=== PATIENT | female | born 1930 | race Asian ===

== ENCOUNTER 2017-09-07 12:49 | Inpatient (IN) | payer MEDICARE, OTHER ==
[2017-09-07 14:17] LABS: Hematocrit 34.3 % (36.0-47.0); Mean Platelet Volume 6.1 fL (7.4-10.4); Red Blood Cell (RBC) Count 4.67 mill/uL (4.20-5.40); White Blood Cell (WBC) Count 19.8 thou/uL (4.8-10.8)
[2017-09-07 14:21] LABS: Lactic Acid - Sepsis 2.6 mmol/L (0.5-2.2)
[2017-09-07 14:31] LABS: ALT (SGPT) 51 U/L (8-55); AST (SGOT) 109 U/L (5-34); Alkaline Phosphatase 80 U/L (40-150); Anion Gap 20 mmol/L (10-20); BUN (Urea Nitrogen) 36 mg/dL (9.8-20.1); Bilirubin, Total 0.8 mg/dL (0.2-1.2); Calc. Creatinine Clearance 0 mL/min (70-130); Calcium 8.9 mg/dL (7.8-10.44); Carbon Dioxide 22 mmol/L (23-31); Chloride 99 mmol/L (98-107); Estimated GFR-MDRD 22; Globulin 2.7 g/dL (2.4-3.5); Protein, Total 6.5 g/dL (6.0-8.3)
[2017-09-07 14:34] LABS: Band 23 % (5-11); Hypochromia SLIGHT = 6-15 cells (100X) (0-5/hpf); Metamyelocyte 3 % (0-0); Microcytosis SLIGHT = 6-15 cells (100X) (0-5/hpf); Neutrophil 65 % (42-75); Ovalocytes SLIGHT = 2-5 cells (100X) (0-1/hpf); Polychromasia SLIGHT = 2-3 cells (100X) (0-2/hpf); Schistocytes SLIGHT = 2-5 cells (100X) (0-1/hpf); Target Cells SLIGHT = 2-5 cells (100X) (0-1/hpf)
[2017-09-07] MEDS ORDERED: Piperacillin/Tazobactam 4.5 GM in Sodium Chloride 0.9% 100 ML IVPB SCH (14:45)
[2017-09-07 14:46] LABS: Bilirubin Negative (Negative); Blood, Urine Large (Negative); Glucose, Urine (Dipstick) Negative (Negative); Ketone, Urine Negative (Negative); Nitrite Negative (Negative); Protein, Urine (Dipstick) 300 mg/dL (Neg-Trace)
[2017-09-07 14:48] LABS: Bacteria/HPF 4+ HPF (None Seen); Squamous Epithelial 21-50 HPF (0-3)
[2017-09-07 14:58] LABS: Hyaline Casts/LPF NONE SEEN LPF (0-3 Hyaline); Yeast-All Forms None Seen HPF (None Seen)
[2017-09-07] MEDS ORDERED: Vancomycin HCl 750 MG in Sodium Chloride 0.9% 250 ML 250 ML IVPB SCH (15:00)
--- NOTE | 2017-09-07 15:43 | RAD ---
RADIOGRAPH CHEST 1 VIEW: Date: 09/07/17 Time: 1:24 p.m. HISTORY: 87-year-old female with fever and anorexia. COMPARISON: None. FINDINGS: There is dense opacification of right lower lung zone, with a sharp, horizontally oriented upper line ar border. The right inferior hilum appears enlarged and is contiguous with this opacification. The r ight lung apex is clear. The left upper and mid lung zones are clear. Mild streaky densities at the r etrocardiac portion of left lower lobe. Left lateral costophrenic angle is not significantly effaced. No pneumothorax. No pulmonary edema. Mild cardiomegaly without pulmonary vascular engorgement. IMPRESSION: 1. Opacification of lower one third of the right lung, probably by a moderate to large right ple ural effusion with underlying severe atelectasis, or pneumonia, of right lower lobe and right middle lobe. 2. Cardiomegaly without congestive heart failure. [place] [] POS: [facility]
[2017-09-07] MEDS ORDERED: Dextrose 5% in Water 1,000 ML IV PRN (15:49)
[2017-09-07] MEDS ORDERED: Dextrose 50% Abboject 50 ML SYRINGE SLOW IVP PRN (15:49)
[2017-09-07] MEDS ORDERED: Mag-Al 1200 mg/1200 mg/30 ML UDCUP PO PRN (15:49)
[2017-09-07] MEDS ORDERED: Ondansetron ODT 4 MG TAB PO PRN (15:49)
[2017-09-07] MEDS ORDERED: Loperamide HCl 2 MG CAP PO PRN (15:49)
[2017-09-07] MEDS ORDERED: Ondansetron HCl/PF 4 MG/2 ML Vial IVP PRN (15:49)
[2017-09-07] MEDS ORDERED: Diabetic Tussin 200 MG/10 ML UDCUP PO PRN (15:49)
[2017-09-07] MEDS ORDERED: Chloraseptic Spray 180 ml Bottle PO PRN (15:49)
[2017-09-07] MEDS ORDERED: Acetaminophen 325 MG TAB PO PRN (15:49)
[2017-09-07] MEDS ORDERED: Artificial Tears 18 DROP/0.9 ML EA EYE PRN (15:49)
[2017-09-07] MEDS ORDERED: HYDROcodone/Acetaminophen 5/325 mg Tablet PO PRN (15:49)
[2017-09-07] MEDS ORDERED: hydrALAZINE 20 MG/ML VIAL SLOW IVP PRN (15:49)
[2017-09-07] MEDS ORDERED: Senokot 8.6 MG TAB PO PRN (15:49)
[2017-09-07] MEDS ORDERED: Eucerin (Mineral Oil/Petrolatum,White) 30 gm Jar TOP PRN (15:49)
[2017-09-07] MEDS ORDERED: Milk Of Magnesia 30 ML UDCUP PO PRN (15:49)
[2017-09-07] MEDS ORDERED: Loratadine 10 MG TAB PO PRN (15:49)
[2017-09-07] MEDS ORDERED: Sodium Chloride 0.65% Nasal 44 ML BOT EA NARE PRN (15:49)
--- NOTE | 2017-09-07 16:38 | HP ---
PRIMARY CARE PHYSICIAN: Ariel Vasques M.D. REASON FOR ADMISSION: Sepsis, acute kidney failure, urinary tract infection, pleural effusion/pneumonia. HISTORY OF PRESENT ILLNESS: An 87-year-old female who has history of hypertension, diabetes type 2, and dyslipidemia, who was brought to the emergency room for evaluation of fever and generalized weakness. The patient is a very poor historian. The patient's daughter reported to the ER physician that she is having fever since night. Her T maximum was 102. The patient's daughter just left and I was not able to reach her and that is why history is limited at this point. The patient has cough, increasing urinary frequency, dysuria, and diarrhea as well as generalized weakness. This is going on since . She denies any headache or body ache. She had a flu shot on last Saturday. Today in the emergency room, patient had routine blood tests and found with urinary tract infection and acute kidney failure, lactic acidosis and she also had leukocytosis with bandemia. Her chest x-ray showed opacification of lower one-third of the right lung and a moderate to large right pleural effusion versus atelectasis of right lower lobe and right middle lobe. REVIEW OF SYSTEMS: The following complete review of systems was negative, unless otherwise mentioned in the HPI or below: Constitutional: Weight loss or gain, ability to conduct usual activities. Skin: Rash, itching. Eyes: Double vision, pain. ENT/Mouth: Nose bleeding, neck stiffness, pain, tenderness. Cardiovascular: Palpitations, dyspnea on exertion, orthopnea. Respiratory: Shortness of breath, wheezing, cough, hemoptysis, fever or night sweats. Gastrointestinal: Poor appetite, abdominal pain, heartburn, nausea, vomiting, constipation, or diarrhea. Genitourinary: Urgency, frequency, dysuria, nocturia. Musculoskeletal: Pain, swelling. Neurologic/Psychiatric: Anxiety, depression. Allergy/Immunologic: Skin rash, bleeding tendency. Review of systems above-mentioned is limited because of level of alertness. ALLERGIES: No known drug allergies. CURRENT HOME MEDICATIONS: Metformin 500 mg p.o. b.i.d., metoprolol 50 mg p.o. daily, Zocor 40 mg p.o. at bedtime. PAST MEDICAL HISTORY: Diabetes type 2, hypertension, dyslipidemia, history of hemorrhagic CVA. PAST SURGICAL HISTORY: Right ear drum surgery, ectopic surgery. Dr. Rome did vein procedure on both legs. PAST PSYCHIATRIC HISTORY: Reviewed and negative. SOCIAL HISTORY: Patient drinks alcohol socially about 1-2 vodka sometimes. The patient denies any smoking. She denies any other illicit drug abuse. She lives at home with her daughter. FAMILY HISTORY: No strong family history of premature coronary artery disease, stroke or cancer. EMERGENCY ROOM COURSE: Patient has received vancomycin, Zosyn, and IV fluid. PHYSICAL EXAMINATION: VITAL SIGNS: On arrival, blood pressure 117/68, pulse 114, respiratory rate 22 , temperature 98.1, saturation 97% on room air, weight 45.3 kilograms. GENERAL: Patient appears chronically ill, tachycardic. No obvious acute distress. HEENT: Head: Normocephalic, atraumatic. Eyes: Pupils round, reactive to light. Extraocular muscles intact. ENT: Dry mucous membranes, otherwise unremarkable. No pharyngeal erythema, no exudate. NECK: Supple, no JVD, no meningeal signs of irritation. LUNGS: Air entry reduced on both bases, few scattered rales noted predominantly on the right side. CARDIAC: S1, S2 regular, tachycardia, no murmur, no gallop, no rub. ABDOMEN: Soft, bowel sounds present, nontender, nondistended. Mild suprapubic discomfort noted. BACK: No CVA tenderness. EXTREMITIES: Upper extremity passive movement of all joints is normal. Lower extremities: No edema. Good peripheral pulsation. SKIN: No skin rash. HEMATOLOGICAL: No lymphadenopathy. PSYCHIATRIC: Flat affect. NEUROLOGIC: Nonfocal examination. She is moving all 4 limbs. Grossly nonfocal neurological examination. SIGNIFICANT LABS: school lunch monitor showing sinus tachycardia. Chest x-ray showing opacification of lower one-third of the right lung, moderate to large right pleural effusion with atelectasis of the right lower lobe and right middle lobe, cardiomegaly. CBC: WBC 19.8, hemoglobin 10.9, MCV 73.4, platelet 120 with bandemia. BMP: Sodium 137, potassium 4.3, chloride 99, carbon dioxide 22, BUN 36, creatinine 2.12, glucose 150. Calcium 8.9. Lactic acid 2.6. LFT: AST 109, ALT 51, alkaline phosphatase 80, albumin 3.8. Urinalysis suggestive of urinary tract infection. ASSESSMENT AND PLAN: 1. Sepsis with acute organ dysfunction. This patient has leukocytosis with bandemia, tachycardia, and fever at home. She has all lactic acidosis along with that, she has acute kidney failure. She meets sepsis with acute organ dysfunction criteria. The patient's source of infection is urinary tract infection as well as underlying pneumonia is also a possibility. Her influenza screen is negative. At this point, the patient will be admitted to telemetry floor for close monitoring, she is hemodynamically stable and does not require any Intermediate Care Unit or Intensive Care Unit. At this point, the patient will be given broad spectrum antibiotic therapy with vancomycin, meropenem, and levofloxacin. We will adjust antibiotics dose based on renal dose. We will follow up on culture result. 2. Urinary tract infection. The patient is on meropenem, vancomycin, and Levaquin. We will follow up on urine culture result. 3. Pneumonia, multifocal with effusion. Patient does have a right lower lobe and right middle lobe infiltration with pleural effusion. We will consult Pulmonary tomorrow to decide about thoracentesis. We will repeat chest x-ray tomorrow. The patient is on broad broad-spectrum antibiotic therapy with Levaquin, vancomycin and meropenem and we will also consider Mucinex 600 mg twice daily and DuoNeb therapy every 6 hourly. We will monitor oxygen saturation and give oxygen to keep saturation above 92%. We will also obtain echocardiography to rule out any congestive heart failure given pleural effusion. The patient may need a thoracentesis to rule out parapneumonic effusion. 4. Acute kidney failure. The patient is clinically dry. The patient will need intravenous fluid. We will continue with normal saline at 150 mL per hour and will repeat basic metabolic panel tomorrow. We will avoid nephrotoxic agents. 5. Anemia, microcytic. We will continue with folic acid, vitamin B12, and ferrous sulfate while in hospital. We will repeat complete blood count tomorrow. 6. Lactic acidosis, likely due to sepsis and we will repeat lactic acid tomorrow. 7. Diabetes type 2. We will hold on metformin therapy because of acute kidney failure and we will provide insulin as per sliding scale protocol. Diabetic diet will be given. 8. Hypertension. We will continue metoprolol 25 mg twice daily if blood pressure permits. 9. Dyslipidemia. We will continue Zocor 40 mg p.o. at bedtime. 10. Deep venous thrombosis prophylaxis, heparin 5000 units subcu twice daily. 11. Gastrointestinal prophylaxis, Protonix 40 mg p.o. daily. 12. Protein calory Malnutrition, moderate: will give nutritional support with Glucerna CODE STATUS: At this point, we will keep as a full code. The patient's daughter has left and she is not available. We will address that thing whenever she is available. Disposition and plan based on clinical course. We are expecting patient's stay in the hospital more than 2 midnights. Plan of care discussed with the patient in detail. 13, Hypotension, NSTEMI, SVT/atrila flutter: Pt became unstable in ER, she developed SVT /atrial flutter and became hypotensive. Will give her 500 ml bolus NS, will give her IV digoxin 0.25 mg and will repeat 0.25 mg IV after half hour if needed, will start solumedrol 40 mg IV q 6hourly, add Aspirin, will consult cardiology for NSTEMI which I am suspecting from demand ischemia, will now admit her to CCU and close monitor, if BP remains low then will consider central line and vasopressure. I spoke with daughter and confirmed that she is full code. Prognosis guarded, condition critical Total time spent providing critical care to this patient in ER is more than 30 minutes. MTDD
[2017-09-07 16:41] LABS: Troponin I 4.233 ng/mL (< 0.028)
[2017-09-07] MEDS ORDERED: Acetaminophen 650 MG Suppository ONE (17:47)
[2017-09-07] MEDS ORDERED: Digoxin 0.5 MG/2 ML AMP SLOW IVP SCH (18:00)
[2017-09-07] MEDS ORDERED: Sodium Chloride 0.9% 500 ML IV SCH (18:00)
[2017-09-07] MEDS ORDERED: Magnesium 2 GM/NS 0.9% 50 ML 2 GM in Premix Bag 1 BAG IVPB SCH (18:15)
[2017-09-07] MEDS ORDERED: Digoxin 0.5 MG/2 ML AMP ONE (18:15)
--- NOTE | 2017-09-07 18:31 | PDOC.EVN ---
Event Note - Event Note Event Note: Pt in ? a, fib with RVR, HR 240s. Discussed with Dr Napier and with ER physician. HR improved to 120s after amiodarone. Dr Rome contulted by ER physician, will see pt/. Dr Napier will consult Dr Corrigan. Discussed with daughter, pt is full code.
[2017-09-07 18:43] LABS: Troponin I 4.569 ng/mL (< 0.028)
[2017-09-07] MEDS ORDERED: Adenosine 6 MG/2 ML VIAL ONE (18:47)
[2017-09-07] MEDS ORDERED: Diltiazem HCl 125 MG, Admixture Fee 1 EACH in Sodium Chloride 0.9% 100 ML IVPB SCH (19:15)
[2017-09-07] MEDS: Sodium Chloride 0.9% 1,000 ML IV SCH ×2 (19:57→23:08)
[2017-09-07 20:28] VITALS: BMI 21.2
[2017-09-07] MEDS ORDERED: Famotidine/PF 20 mg/2ml Vial SLOW IVP SCH (21:00)
[2017-09-07] MEDS ORDERED: Heparin 5,000 UNITS/ML VIAL SC SCH (21:00)
[2017-09-07] MEDS ORDERED: Enoxaparin Sodium 60 MG/0.6 ML SYRINGE SC SCH (21:00)
[2017-09-07] MEDS: Metoprolol Tartrate 25 MG TAB PO SCH (21:42)
[2017-09-07] MEDS: guaiFENesin ER 600 MG TAB PO SCH (21:42)
[2017-09-07] MEDS: Atorvastatin Calcium 20 MG TAB PO SCH (21:42)
[2017-09-07] MEDS: HumaLOG 300 UNITS/3 ML VIAL SC PRN (21:43)
[2017-09-07] MEDS: Meropenem 500 MG in Sodium Chloride 0.9% 100 ML IVPB SCH (23:09)
[2017-09-08 05:03] LABS: ALT (SGPT) 638 U/L (8-55); AST (SGOT) 1653 U/L (5-34); Alkaline Phosphatase 82 U/L (40-150); Anion Gap 15 mmol/L (10-20); BUN (Urea Nitrogen) 38 mg/dL (9.8-20.1); Bilirubin, Total 0.9 mg/dL (0.2-1.2); Calc. Creatinine Clearance 15 mL/min (70-130); Calcium 7.6 mg/dL (7.8-10.44); Carbon Dioxide 18 mmol/L (23-31); Chloride 104 mmol/L (98-107); Cholesterol 91 mg/dl (< 200 Desired); Estimated GFR-MDRD 24; Globulin 2.3 g/dL (2.4-3.5); LDL Cholesterol, Calculated 37 mg/dL; Protein, Total 5.3 g/dL (6.0-8.3)
[2017-09-08 05:07] LABS: Band 24 % (5-11); Hematocrit 31.6 % (36.0-47.0); Mean Platelet Volume 7.4 fL (7.4-10.4); Neutrophil 61 % (42-75); Red Blood Cell (RBC) Count 4.25 mill/uL (4.20-5.40); White Blood Cell (WBC) Count 16.1 thou/uL (4.8-10.8)
[2017-09-08] MEDS: Sodium Chloride 0.9% 1,000 ML IV SCH ×4 (06:20→22:13)
[2017-09-08] MEDS: Cyanocobalamin (Vitamin B-12) 1,000 MCG TAB PO SCH (08:52)
[2017-09-08] MEDS: Folic Acid 1 MG TAB PO SCH (08:52)
[2017-09-08] MEDS: Metoprolol Tartrate 25 MG TAB PO SCH ×2 (08:53→21:09)
[2017-09-08] MEDS: Ferrous Sulfate 325 MG TAB PO SCH (08:53)
[2017-09-08] MEDS: Saccharomyces boulardii 250 MG CAP PO SCH (08:53)
[2017-09-08] MEDS: Aspirin 325 MG TAB PO SCH (08:53)
[2017-09-08] MEDS: Multivitamin W/ Minerals 1 TAB PO SCH (08:53)
[2017-09-08] MEDS: guaiFENesin ER 600 MG TAB PO SCH ×2 (08:53→21:09)
--- NOTE | 2017-09-08 10:15 | PDOC.PN ---
- Subjective Encounter Start Date: 09/08/17 Encounter Start Time: 09:45 Subjective: I FEEL BETTER TODAY - Objective Resuscitation Status: Resuscitation Status FULL:Full Resuscitation MAR Reviewed: Yes Vital Signs & Weight: Vital Signs (12 hours) Temp Pulse Resp Pulse Ox 09/08/17 08:00 97.6 F 101 H 26 H 100 09/08/17 07:00 97.6 F 09/08/17 06:54 100 09/08/17 06:52 74 25 H 100 09/08/17 04:00 98.9 F 09/08/17 00:00 98.8 F 09/07/17 22:40 78 25 H 100 Weight Admit Weight 108 lb 7.479 oz Most Recent Monitor Data Heart Rate from ECG 92 NIBP 140/74 NIBP BP-Mean 95 Respiration from ECG 25 SpO2 100 I&O: 09/07/17 09/08/17 09/09/17 06:59 06:59 06:59 Intake Total 2496.2 240 Output Total 474 55 Balance 2022.2 185 Result Diagrams: 09/08/17 03:45 09/08/17 03:45 Additional Labs: Accuchecks 09/08/17 09/07/17 09/07/17 06:24 21:03 17:43 POC Glucose 142 H 209 H 86 Radiology Reviewed by me: Yes Phys Exam - Physical Examination Constitutional: NAD HEENT: PERRLA, moist MMs, sclera anicteric Neck: supple, full ROM Respiratory: clear to auscultation bilateral Cardiovascular: irregular Gastrointestinal: soft, non-tender, positive bowel sounds Musculoskeletal: no edema Neurological: non-focal, moves all 4 limbs Psychiatric: normal affect, A&O x 3 Skin: no rash Dx/Plan (1) Afib Code(s): I48.91 - UNSPECIFIED ATRIAL FIBRILLATION Status: Acute (2) Status post CVA Code(s): Z86.73 - PRSNL HX OF TIA (TIA), AND CEREB INFRC W/O RESID DEFICITS Status: Acute (3) Sepsis Code(s): A41.9 - SEPSIS, UNSPECIFIED ORGANISM Status: Acute (4) NSTEMI (non-ST elevated myocardial infarction) Code(s): I21.4 - NON-ST ELEVATION (NSTEMI) MYOCARDIAL INFARCTION Status: Acute (5) HTN (hypertension) Code(s): I10 - ESSENTIAL (PRIMARY) HYPERTENSION Status: Acute (6) CAP (community acquired pneumonia) Code(s): J18.9 - PNEUMONIA, UNSPECIFIED ORGANISM Status: Acute (7) UTI (urinary tract infection) Status: Acute (8) Bacteremia due to Escherichia coli Code(s): R78.81 - BACTEREMIA Status: Acute - Plan cont current plan of care, plan discussed w/ family, continue antibiotics CONTINUE ABX THERAPY, ECHO DONE, CARDS RECCS PENDING * .
--- NOTE | 2017-09-08 10:27 | RAD ---
AP CHEST: COMPARISON: 09/07/17 exam. HISTORY: Pleural effusion. FINDINGS: Heart size is enlarged with atherosclerotic change of the aorta. Right-sided pleural effusion is aga in noted. There is increased density over the right chest. 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 IMPRESSION: 1. Cardiomegaly. 2. Right-sided pleural effusion. There is increased density over the right chest as compared to the prior exam. This may be related to the fact this is not a truly upright film and this may represent some layering of effusion. POS: [facility]
[2017-09-08] MEDS: HumaLOG 300 UNITS/3 ML VIAL SC PRN ×3 (11:28→21:09)
[2017-09-08] MEDS: Meropenem 500 MG in Sodium Chloride 0.9% 100 ML IVPB SCH (11:48)
--- NOTE | 2017-09-08 13:41 | PRG ---
DATE OF SERVICE: 09/08/2017 SUBJECTIVE: Ms. Solomon is doing much better. She is seen sitting up in a chair. She continues to be on IV Cardizem. She has no complaints of chest pain, pressure, shortness of breath. Her heart ra te appears stable. OBJECTIVE: VITAL SIGNS: Blood pressure 129/69, pulse 71, temperature afebrile. LUNGS: Clear to auscultation. CARDIAC: Irregular, irregular. ABDOMEN: Soft, nontender, nondistended. EXTREMITIES: No edema. PERTINENT LABORATORY DATA: Hemoglobin 10.2, creatinine 2.0. IMPRESSION: 1. Elevated troponin. 2. Atrial fibrillation with rapid ventricular response. 3. Sepsis. RECOMMENDATIONS: At this point, Ms. Solomon appears comfortable. We will add p.o. Cardizem in hope s of decreasing her IV Cardizem. We will try and achieve rate control. We will continue anticoagula tion therapy. Her LVEF does appear within normal limits. May consider EP consultation for possible atrial flutter. Continue antibiotic therapy.
--- NOTE | 2017-09-08 13:59 | CON ---
DATE OF CONSULTATION: 09/07/2017 REASON FOR CONSULTATION: Elevated troponin and tachycardia. HISTORY OF PRESENT ILLNESS: Ms. Cuadra is a very pleasant 87-year-old woman who I saw and evaluated several years ago. She underwent radiofrequency ablation of the veins. She recently presented with fevers, chills, and weakness. She presented to the emergency room after being brought by her family member. I received a call from the admitting provider after her heart rate increased in the 220s. EKG was fa xed over and did suggest wide complex tachycardia V1 through V3, but otherwise appeared narrow. She was given digoxin with no improvement. She was then given amiodarone. Her rate then slowly started to decrease with IV fluids and amiodarone therapy. Adenosine was deferred. During my visit, she states she has not had any chest pain, pressure or shortness of breath. She rodrigues s appear comfortable. PAST MEDICAL HISTORY: Hypertension, hyperlipidemia, diabetes mellitus, previous CVA. PAST SURGICAL HISTORY: Right eardrum surgery and ectopic . SOCIAL HISTORY: Intermittent alcohol use, no tobacco use. FAMILY HISTORY: Negative for CAD. REVIEW OF SYSTEMS: Ten point review of systems is reviewed and as above, otherwise negative. PHYSICAL EXAMINATION: GENERAL: Patient is a pleasant female who is in no acute distress. The patient appears her stated a ge. VITAL SIGNS: Blood pressure 114/66, pulse 71, temperature afebrile. NEUROLOGIC: The patient is alert and oriented times 3 with no focal neurologic deficits. HEENT: Sclerae without icterus. Mouth has moist mucous membranes with normal pallor. NECK: No JVD. Carotid upstroke brisk. No bruits bilaterally. LUNGS: Clear to auscultation with unlabored respirations. BACK: No scoliosis or kyphosis. CARDIAC: Irregularly irregular. ABDOMEN: Soft, nontender, nondistended. No peritoneal signs present. No hepatosplenomegaly. No abnormal striae. EXTREMITIES: 2+ femoral and 2+ dorsalis pedis pulses. No cyanosis, clubbing, or edema. SKIN: No gross abnormalities. PERTINENT LABORATORY DATA AND IMAGIN. Hemoglobin 10.2, creatinine 2.0, and sodium 133. Peak troponin of 4.2 and slightly increased to 4.5. 2. EKG shows atrial fibrillation with rapid ventricular response. 3. AST and ALT of 1653 and 639. 4. Platelet count of 82,000. IMPRESSION: 1. Elevated troponin. 2. Sepsis. 3. Atrial fibrillation with rapid ventricular response. 4. Elevated AST and ALT. RECOMMENDATIONS: Ms. Cuadra's current case is certainly complex. In the immediate need, would olviier mmend rate control. We will place on IV Cardizem for better rate control. The issue is a previous h emorrhagic CVA. She had CT scan performed in 2015 and was negative for hemorrhage and [address] scans in January and February of 2017 with no bleeding present. At this point, I would recommend Lovenox s ubcu. She is on antibiotic therapy for likely sepsis. Her peak temperature [facility] [address] [facility] I did spend 50 minutes of ICU care on Ms. Cuadra's bedside as well as discussed the case with Dr. Minh hebert as well as ER physician, on treatment plan.
[2017-09-08 14:06] LABS: Critical Call Chem Troponin I RESULT DECREASING; Troponin I 2.184 ng/mL (< 0.028)
--- NOTE | 2017-09-08 20:56 | CON ---
DATE OF CONSULTATION: 09/08/2017 Ms. Cuadra is an 87-year-old female. She presented with fever and weakness. She was tachycardic and febrile. She subsequently was admitted to the ICU. I was consulted to assist in her management. At the time I was consulted to, blood cultures came back positive for gram-negative organisms. PAST MEDICAL HISTORY: Remarkable for, 1. Diabetes. 2. Hypertension. 3. Lipid disorder. 4. History of CVA. 5. History of an ectopic . 6. History of ear drum surgery. 7. History of vein ablation. FAMILY HISTORY: Negative for lung disease at an early age. REVIEW OF SYSTEMS: Otherwise negative. She says she is feeling much better. PHYSICAL EXAMINATION: VITAL SIGNS: Heart rate 73, respiratory rate is 20, oximetry is 100, blood pressure 150/76. HEENT: Pupils are equal. Sclerae is anicteric. NECK: Supple. LUNGS: Clear. HEART: Regular rhythm. S1 and S2 are normal. ABDOMEN: Soft and nontender. EXTREMITIES: Without asymmetry. LABORATORY AND X-RAY FINDINGS: Chest radiograph shows small right effusion. I did find a urine culture done at 9:00 last night, growing a gram negative tenisha. Blood cultures done at 1:55 and 2:03 are growing gram negative rods. IMPRESSION: 1. Urinary tract sepsis. 2. Rapid atrial fibrillation, likely part of a response to her sepsis. PLAN: Antimicrobial therapy. Cardiac consult has been placed. We would be happy to follow with the other patients, she appears to be stable at this time.
[2017-09-08] MEDS ORDERED: Enoxaparin Sodium 60 MG/0.6 ML SYRINGE SC SCH (21:00)
[2017-09-08] MEDS: Atorvastatin Calcium 20 MG TAB PO SCH (21:08)
[2017-09-09] MEDS: Meropenem 500 MG in Sodium Chloride 0.9% 100 ML IVPB SCH ×2 (00:05→11:38)
[2017-09-09] MEDS: Sodium Chloride 0.9% 1,000 ML IV SCH ×2 (05:41→16:48)
[2017-09-09] MEDS: Multivitamin W/ Minerals 1 TAB PO SCH (07:59)
[2017-09-09] MEDS: Aspirin 325 MG TAB PO SCH (07:59)
[2017-09-09] MEDS: Cyanocobalamin (Vitamin B-12) 1,000 MCG TAB PO SCH (07:59)
[2017-09-09] MEDS: Folic Acid 1 MG TAB PO SCH (07:59)
[2017-09-09] MEDS: Ferrous Sulfate 325 MG TAB PO SCH (07:59)
[2017-09-09] MEDS: guaiFENesin ER 600 MG TAB PO SCH ×2 (07:59→21:27)
[2017-09-09] MEDS: Saccharomyces boulardii 250 MG CAP PO SCH (07:59)
[2017-09-09] MEDS: Metoprolol Tartrate 25 MG TAB PO SCH ×2 (08:00→21:27)
--- NOTE | 2017-09-09 10:31 | PDOC.PN ---
- Subjective Encounter Start Date: 09/09/17 Encounter Start Time: 09:40 -: old records requested/rev Patient seen and examined. No new complaints. No overnight events - Objective Resuscitation Status: Resuscitation Status FULL:Full Resuscitation MAR Reviewed: Yes Vital Signs & Weight: Vital Signs (12 hours) Temp Pulse Resp Pulse Ox 09/09/17 08:13 99 09/09/17 08:11 92 19 09/09/17 08:00 97.6 F 92 19 92 L 09/09/17 04:00 98.3 F 09/09/17 02:40 74 20 100 09/09/17 00:00 97.5 F L 100 Weight Admit Weight 108 lb 7.479 oz Most Recent Monitor Data Heart Rate from ECG 89 NIBP 147/81 NIBP BP-Mean 121 Respiration from ECG 20 SpO2 98 I&O: 09/08/17 09/09/17 09/10/17 06:59 06:59 06:59 Intake Total 2496.2 4555 Output Total 474 652 130 Balance 2022.2 3903 -130 Result Diagrams: 09/08/17 03:45 09/08/17 03:45 Additional Labs: Accuchecks 09/09/17 09/08/17 09/08/17 06:16 21:07 16:34 POC Glucose 135 H 291 H 206 H 09/08/17 11:27 POC Glucose 210 H EKG Reviewed by me: Yes (aflutter) Phys Exam - Physical Examination Constitutional: NAD HEENT: PERRLA, moist MMs, sclera anicteric Neck: no JVD, supple Respiratory: no wheezing, no rales, no rhonchi Cardiovascular: no significant murmur, irregular Gastrointestinal: soft, non-tender, no distention, positive bowel sounds Musculoskeletal: no edema, pulses present Neurological: non-focal, normal sensation Lymphatic: no nodes Psychiatric: normal affect Skin: no rash, normal turgor Dx/Plan (1) Acute kidney failure Status: Acute (2) Atrial fibrillation with RVR Code(s): I48.91 - UNSPECIFIED ATRIAL FIBRILLATION Status: Acute (3) Bacteremia due to Escherichia coli Code(s): R78.81 - BACTEREMIA Status: Acute (4) CAP (community acquired pneumonia) Code(s): J18.9 - PNEUMONIA, UNSPECIFIED ORGANISM Status: Acute (5) H/O: CVA (cerebrovascular accident) Code(s): Z86.73 - PRSNL HX OF TIA (TIA), AND CEREB INFRC W/O RESID DEFICITS Status: Acute (6) Hypotension Status: Acute (7) Lactic acidosis Code(s): E87.2 - ACIDOSIS Status: Acute (8) Non-ST elevation myocardial infarction (NSTEMI), type 2 Code(s): I21.A1 - MYOCARDIAL INFARCTION TYPE 2 Status: Acute (9) Sepsis with acute organ dysfunction Code(s): A41.9 - SEPSIS, UNSPECIFIED ORGANISM; R65.20 - SEVERE SEPSIS WITHOUT SEPTIC SHOCK Status: Acute (10) Transaminitis Code(s): R74.0 - NONSPEC ELEV OF LEVELS OF TRANSAMNS & LACTIC ACID DEHYDRGNSE Status: Acute (11) UTI (urinary tract infection) Status: Acute (12) HTN (hypertension) Code(s): I10 - ESSENTIAL (PRIMARY) HYPERTENSION Status: Chronic (13) Protein-calorie malnutrition, moderate Code(s): E44.0 - MODERATE PROTEIN-CALORIE MALNUTRITION Status: Chronic - Plan cont current plan of care, continue antibiotics * continue IV antibiotics, meropenam, levaquin * rate controlled * overall doing well * medication reviewed as below * symptomatic treatment * follow culture * repeat labs and culture tomorrow * will consider transfer to [facility] later on today. * DC solumedrol * DC lipitor due to high LFT Review of Systems - Review of Systems Constitutional: Weakness, Malaise. negative: Fever, Chills, Sweats, Other ENT: negative: Ear Pain, Ear Discharge, Nose Pain, Nose Discharge, Nose Congestion, Mouth Pain, Mouth Swelling, Throat Pain, Throat Swelling, Other Respiratory: negative: Cough, Dry, Shortness of Breath, Hemoptysis, SOB with Excertion, Pleuritic Pain, Sputum, Wheezing Cardiovascular: negative: Chest Pain, Palpitations, Orthopnea, Paroxysmal Noc. Dyspnea, Edema, Light Headedness, Other Gastrointestinal: negative: Nausea, Vomiting, Abdominal Pain, Diarrhea, Constipation, Melena, Hematochezia, Other Genitourinary: negative: Dysuria, Frequency, Incontinence, Hematuria, Retention , Other Musculoskeletal: negative: Neck Pain, Shoulder Pain, Arm Pain, Back Pain, Hand Pain, Leg Pain, Foot Pain, Other Skin: negative: Rash, Lesions, Freedom, Bruising, Other - Medications/Allergies Allergies/Adverse Reactions: Allergies Allergy/AdvReac Type Severity Reaction Status Date / Time No Known Allergies Allergy Verified 09/07/17 19:56 Medications: Current Medications Acetaminophen (Tylenol) 650 mg PO Q4H PRN PRN Reason: Headache/Fever or Pain Last Admin: 09/07/17 23:08 Dose: 650 mg Hydrocodone Bitart/Acetaminophen ([place] 5/325) 1 tab PO Q4H PRN PRN Reason: Moderate Pain (4-6) Al Hydroxide/Mg Hydroxide (Maalox) 30 ml PO Q6H PRN PRN Reason: Heartburn or Indigestion Albuterol/Ipratropium (Duoneb) 3 ml NEB [id number] [facility] Last Admin: 09/09/17 08:11 Dose: 3 ml Artificial Tears (Tears Naturale) 0 drop EA EYE PRN PRN PRN Reason: Dry Eyes Aspirin (Aspirin) 325 mg PO DAILY [facility] Last Admin: 09/09/17 07:59 Dose: 325 mg Cyanocobalamin (Vitamin B-12) 1,000 mcg PO DAILY [facility] Last Admin: 09/09/17 07:59 Dose: 1,000 mcg Dextrose/Water (Dextrose 50%) 25 gm SLOW IVP PRN PRN PRN Reason: Hypoglycemia Enoxaparin Sodium (Lovenox) 50 mg SC 2100 [facility] Last Admin: 09/08/17 21:08 Dose: 50 mg Ferrous Sulfate (Feosol) 325 mg PO QAM-WM [facility] Last Admin: 09/09/17 07:59 Dose: 325 mg Folic Acid (Folvite) 1 mg PO DAILY [facility] Last Admin: 09/09/17 07:59 Dose: 1 mg Glucagon (Glucagon) 1 mg IM PRN PRN PRN Reason: Hypoglycemia Guaifenesin (Robitussin Sf) 200 mg PO Q4H PRN PRN Reason: Cough Guaifenesin (Mucinex) 600 mg PO Q12HR [facility] Last Admin: 09/09/17 07:59 Dose: 600 mg Hydralazine HCl (Apresoline) 10 mg SLOW IVP Q4H PRN PRN Reason: Systolic BP > 180 Dextrose/Water (D5w) 1,000 mls @ 0 mls/hr IV .Q0M PRN; As Directed PRN Reason: Hypoglycemia Meropenem 500 mg/ Sodium (Chloride) 100 mls @ 200 mls/hr IVPB 1200,2359 [facility] Last Admin: 09/09/17 00:05 Dose: 100 mls Diltiazem HCl 125 mg/Miscellaneous Medication 1 each/ Sodium Chloride 125 mls @ 0 mls/hr IVPB INF STEPHANIE; As Directed PRN Reason: Protocol Last Admin: 09/07/17 20:03 Dose: 125 mls Levofloxacin 500 mg/ Device 100 mls @ 100 mls/hr IVPB Q2DAYS [facility] Last Admin: 09/07/17 22:19 Dose: 100 mls Sodium Chloride (Normal Saline 0.9%) 1,000 mls @ 100 mls/hr IV .Q10H [facility] Insulin Human Lispro (Humalog) 0 units SC .MODERATE SLIDING SC PRN PRN Reason: Moderate Correctional Scale Last Admin: 09/08/17 16:41 Dose: 4 unit Insulin Human Lispro (Humalog) 0 units SC .BEDTIME SLIDING SC PRN PRN Reason: Bedtime Correctional Scale Last Admin: 09/08/17 21:09 Dose: 3 unit Iron/Minerals/Multivitamins (Theragran M) 1 tab PO DAILY [facility] Last Admin: 09/09/17 07:59 Dose: 1 tab Loperamide HCl (Imodium) 2 mg PO PRN PRN PRN Reason: Diarrhea/Loose Stools Loratadine (Claritin) 10 mg PO DAILYPRN PRN PRN Reason: Sinus Symptoms Magnesium Hydroxide (Milk Of Magnesium) 30 ml PO DAILYPRN PRN PRN Reason: Constipation Metoprolol Tartrate (Lopressor) 25 mg PO BID [facility] Last Admin: 09/09/17 08:00 Dose: 25 mg Mineral Oil/White Petrolatum (Eucerin Cream) 0 gm TOP BIDPRN PRN PRN Reason: Dry Skin Ondansetron HCl (Zofran Odt) 4 mg PO Q6H PRN PRN Reason: Nausea/Vomiting Ondansetron HCl (Zofran) 4 mg IVP Q6H PRN PRN Reason: Nausea/Vomiting Pantoprazole Sodium (Protonix) 40 mg PO DAILY [facility] Last Admin: 09/09/17 08:00 Dose: 40 mg Phenol (Chloraseptic [place] 180 Ml Bot) 0 ml PO PRN PRN PRN Reason: Sore Throat Saccharomyces Boulardii (Florastor) 250 mg PO DAILY [facility] Last Admin: 09/09/17 07:59 Dose: 250 mg Senna (Senokot) 2 tab PO HSPRN PRN PRN Reason: Constipation Sodium Chloride ([place] Nasal [place] 0.65%) 0 ml EA NARE QIDPRN PRN PRN Reason: Nasal Congestion
[2017-09-09] MEDS: HumaLOG 300 UNITS/3 ML VIAL SC PRN ×3 (11:39→21:34)
--- NOTE | 2017-09-09 11:47 | PRG ---
DATE OF SERVICE: 09/09/2017 SUBJECTIVE: Ms. Cuadra is doing well, no recurrent episodes of chest pain, pressure, shortness of b reath or other associated symptoms. PHYSICAL EXAMINATION: VITAL SIGNS: Blood pressure 137/74, pulse 85, respirations 20. GENERAL: Patient is a pleasant female who is in no acute distress. The patient appears her stated ag e. NEUROLOGIC: The patient is alert and oriented times 3 with no focal neurologic deficits. HEENT: Sclerae without icterus. Mouth has moist mucous membranes with normal pallor. NECK: No JVD. Carotid upstroke brisk. No bruits bilaterally. LUNGS: Clear to auscultation with unlabored respirations. BACK: No scoliosis or kyphosis. CARDIAC: Irregularly irregular. ABDOMEN: Soft, nontender, nondistended. No peritoneal signs present. No hepatosplenomegaly. No abn ormal striae. EXTREMITIES: 2+ femoral and 2+ dorsalis pedis pulses. No cyanosis, clubbing, or edema. SKIN: No gross abnormalities. LABS: Hemoglobin 10.2. Troponin 2.1, creatinine 2.0. IMPRESSION: 1. Urosepsis. 2. Elevated troponin. 3. Atrial fibrillation. RECOMMENDATIONS: I spoke with Ms. Cuadra's daughter at length about the plan from a CV standpoint. At this point, we will continue antibiotic therapy, rate control. Will likely need a cardiac workup as an outpatient or inpatient if things change. Otherwise, I would continue antibiotic therapy, rat e control and will add novel oral anticoagulation treatment.
--- NOTE | 2017-09-09 12:20 | PRG ---
DATE OF SERVICE: 09/09/2017 SUBJECTIVE: Ms. Cuadra is doing well. She is in no distress. I met with the daughter and answered all of her questions. PHYSICAL EXAMINATION: VITAL SIGNS: She is afebrile, blood pressure 137/74, heart rate 85, respiratory rate 22. LUNGS: Clear. HEART: Regular rhythm. ABDOMEN: Soft. She is still in atrial flutter by the monitor. LABORATORY DATA: There is no lab today other than blood glucoses. E. coli sensitivities are back an d it is pansensitive E. coli. IMPRESSION: 1. Escherichia coli bacteremia secondary to pyelonephritis. 2. Atrial fibrillation/atrial flutter. 3. Advanced age with extremely functional with her advanced age. Daughter tells me she is walking 2 miles a day. PLAN: 1. Transfer out to a telemetry bed. 2. Ultrasound to make sure she does not have nephrolithiasis or obstructive uropathy associated with pyelonephritis. She has dramatically and clinically improved, so I doubt this is a factor.
[2017-09-09] MEDS ORDERED: Vancomycin HCl 750 MG in Sodium Chloride 0.9% 250 ML 250 ML IVPB SCH (15:00)
[2017-09-09] MEDS: Apixaban 5 MG TAB PO SCH (21:26)
[2017-09-10] MEDS: Meropenem 500 MG in Sodium Chloride 0.9% 100 ML IVPB SCH (00:55)
[2017-09-10 04:50] LABS: PTT 34.2 SEC (22.9-36.1); Prothrombin Time 13.9 SEC (12.0-14.7)
[2017-09-10 05:14] LABS: Band 3 % (5-11); Hematocrit 30.9 % (36.0-47.0); Mean Platelet Volume 6.8 fL (7.4-10.4); Neutrophil 89 % (42-75); White Blood Cell (WBC) Count 11.8 thou/uL (4.8-10.8)
[2017-09-10 05:26] LABS: ALT (SGPT) 255 U/L (8-55); AST (SGOT) 147 U/L (5-34); Alkaline Phosphatase 82 U/L (40-150); Anion Gap 13 mmol/L (10-20); BUN (Urea Nitrogen) 38 mg/dL (9.8-20.1); Bilirubin, Total 0.4 mg/dL (0.2-1.2); Calc. Creatinine Clearance 22 mL/min (70-130); Calcium 7.5 mg/dL (7.8-10.44); Carbon Dioxide 16 mmol/L (23-31); Chloride 107 mmol/L (98-107); Estimated GFR-MDRD 35; Globulin 2.3 g/dL (2.4-3.5); Protein, Total 5.3 g/dL (6.0-8.3)
[2017-09-10] MEDS: HumaLOG 300 UNITS/3 ML VIAL SC PRN ×3 (06:17→18:35)
--- NOTE | 2017-09-10 08:07 | ULT ---
ABDOMINAL ULTRASOUND: Date: 09-10-17 Comparison: None. History: Fever, dehydration, anorexia, evaluate for kidney stones. Technique: Multiplanar grayscale sonographic imaging of the abdomen obtained. FINDINGS: Scattered areas of atherosclerotic calcification are seen within the abdominal aorta. Imaged IVC appe ars grossly unremarkable. There is mild pancreatic ductal dilatation, measuring in the 2 mm range. Bilateral pleural effusions are noted, incompletely assessed on this examination. No focal liver lesion or intrahepatic biliary dilatation is seen. The right kidney measures in the 8.2 cm range, demonstrating no stone or hydronephrosis. There is a l obulated hypoechoic area in the upper pole of the right kidney measuring 1.8 x 1.2 cm, poorly assesse d on this examination secondary to location. No cholelithiasis or gallbladder wall thickening. The psychiatry teacher reports a negative Cohn's sign. T he common bile duct measures 5 mm, within normal limits. Spleen measures up to 7.5 cm, within normal limits. There is trace free fluid in the upper abdomen adjacent to the right kidney and spleen. Left kidney m easures 10.5 cm in craniocaudal dimension and demonstrates no evidence for stone, hydronephrosis, or mass. IMPRESSION: 1. No evidence for cholelithiasis, cholecystitis, or biliary dilatation. 2. Hypoechoic lesion in the superior pole of the right kidney, poorly assessed on this exam. This may represent a cyst. It could be further assessed via CT. 3. Bilateral pleural effusions. 4. Trace free fluid in the upper abdomen. 5. Mild prominence of the pancreatic duct, significance uncertain. If there is clinical concern for b iliary obstructive process, CT is suggested. POS: MAI
[2017-09-10] MEDS ORDERED: Sodium Chloride 0.9% 1,000 ML IV SCH (08:15)
[2017-09-10] MEDS ORDERED: Potassium Chloride 20 MEQ TAB PO SCH (08:15)
[2017-09-10] MEDS: Apixaban 5 MG TAB PO SCH ×2 (08:27→20:11)
[2017-09-10] MEDS: Folic Acid 1 MG TAB PO SCH (08:27)
[2017-09-10] MEDS: guaiFENesin ER 600 MG TAB PO SCH ×2 (08:27→20:12)
[2017-09-10] MEDS: Valsartan 80 MG TAB PO SCH (08:27)
[2017-09-10] MEDS: Cyanocobalamin (Vitamin B-12) 1,000 MCG TAB PO SCH (08:27)
[2017-09-10] MEDS: Metoprolol Tartrate 50 MG TAB PO SCH ×2 (08:28→20:12)
[2017-09-10] MEDS: Ferrous Sulfate 325 MG TAB PO SCH (08:28)
[2017-09-10] MEDS: Saccharomyces boulardii 250 MG CAP PO SCH (08:28)
[2017-09-10] MEDS: Multivitamin W/ Minerals 1 TAB PO SCH (08:28)
[2017-09-10] MEDS: Sodium Chloride 0.9% 1,000 ML IV SCH (10:11)
--- NOTE | 2017-09-10 12:39 | PDOC.PN ---
- Subjective Encounter Start Date: 09/10/17 Encounter Start Time: 09:45 Patient seen and examined. No new complaints. No overnight events - Objective Resuscitation Status: Resuscitation Status FULL:Full Resuscitation Vital Signs & Weight: Vital Signs (12 hours) Temp Pulse Resp Pulse Ox 09/10/17 11:00 97.6 F 09/10/17 08:00 98.1 F 99 17 98 09/10/17 07:59 99 17 09/10/17 07:00 98.1 F 09/10/17 05:29 98 09/10/17 04:00 98.4 F 09/10/17 00:40 78 18 98 Weight Admit Weight 108 lb 7.479 oz Most Recent Monitor Data Heart Rate from ECG 81 NIBP 153/85 NIBP BP-Mean 115 Respiration from ECG 25 SpO2 97 I&O: 09/09/17 09/10/17 09/11/17 06:59 06:59 06:59 Intake Total 4555 2048 840 Output Total 652 795 135 Balance 3903 1253 705 Result Diagrams: 09/10/17 03:50 09/10/17 03:50 Additional Labs: Accuchecks 09/10/17 09/10/17 09/09/17 11:08 06:14 21:33 POC Glucose 180 H 153 H 206 H 09/09/17 16:51 POC Glucose 245 H Phys Exam - Physical Examination Constitutional: NAD HEENT: PERRLA, moist MMs, sclera anicteric Neck: no JVD, supple Respiratory: no wheezing, no rales, no rhonchi Cardiovascular: no significant murmur, no rub, irregular Gastrointestinal: soft, non-tender, no distention, positive bowel sounds Musculoskeletal: no edema, pulses present Neurological: non-focal, normal sensation Lymphatic: no nodes Psychiatric: normal affect, A&O x 3 Skin: no rash, normal turgor Dx/Plan (1) Acute kidney failure Status: Acute (2) Atrial fibrillation with RVR Code(s): I48.91 - UNSPECIFIED ATRIAL FIBRILLATION Status: Acute (3) Bacteremia due to Escherichia coli Code(s): R78.81 - BACTEREMIA Status: Acute (4) CAP (community acquired pneumonia) Code(s): J18.9 - PNEUMONIA, UNSPECIFIED ORGANISM Status: Acute (5) H/O: CVA (cerebrovascular accident) Code(s): Z86.73 - PRSNL HX OF TIA (TIA), AND CEREB INFRC W/O RESID DEFICITS Status: Acute (6) Hypotension Status: Acute (7) Lactic acidosis Code(s): E87.2 - ACIDOSIS Status: Acute (8) Non-ST elevation myocardial infarction (NSTEMI), type 2 Code(s): I21.A1 - MYOCARDIAL INFARCTION TYPE 2 Status: Acute (9) Sepsis with acute organ dysfunction Code(s): A41.9 - SEPSIS, UNSPECIFIED ORGANISM; R65.20 - SEVERE SEPSIS WITHOUT SEPTIC SHOCK Status: Acute (10) Transaminitis Code(s): R74.0 - NONSPEC ELEV OF LEVELS OF TRANSAMNS & LACTIC ACID DEHYDRGNSE Status: Acute (11) UTI (urinary tract infection) Status: Acute (12) HTN (hypertension) Code(s): I10 - ESSENTIAL (PRIMARY) HYPERTENSION Status: Chronic (13) Protein-calorie malnutrition, moderate Code(s): E44.0 - MODERATE PROTEIN-CALORIE MALNUTRITION Status: Chronic - Plan cont current plan of care, continue antibiotics * transfer to tele * continue IV antibiotic, IV levaquin * medication reviewed as below * symptomatic treatment * start elliquis. * today will start selected home meds Review of Systems - Review of Systems ENT: negative: Ear Pain, Ear Discharge, Nose Pain, Nose Discharge, Nose Congestion, Mouth Pain, Mouth Swelling, Throat Pain, Throat Swelling, Other Respiratory: negative: Cough, Dry, Shortness of Breath, Hemoptysis, SOB with Excertion, Pleuritic Pain, Sputum, Wheezing Cardiovascular: negative: Chest Pain, Palpitations, Orthopnea, Paroxysmal Noc. Dyspnea, Edema, Light Headedness, Other Gastrointestinal: negative: Nausea, Vomiting, Abdominal Pain, Diarrhea, Constipation, Melena, Hematochezia, Other Genitourinary: negative: Dysuria, Frequency, Incontinence, Hematuria, Retention , Other Musculoskeletal: negative: Neck Pain, Shoulder Pain, Arm Pain, Back Pain, Hand Pain, Leg Pain, Foot Pain, Other - Medications/Allergies Allergies/Adverse Reactions: Allergies Allergy/AdvReac Type Severity Reaction Status Date / Time No Known Allergies Allergy Verified 09/07/17 19:56 Medications: Current Medications Acetaminophen (Tylenol) 650 mg PO Q4H PRN PRN Reason: Headache/Fever or Pain Last Admin: 09/07/17 23:08 Dose: 650 mg Hydrocodone Bitart/Acetaminophen ([place] 5/325) 1 tab PO Q4H PRN PRN Reason: Moderate Pain (4-6) Al Hydroxide/Mg Hydroxide (Maalox) 30 ml PO Q6H PRN PRN Reason: Heartburn or Indigestion Albuterol/Ipratropium (Duoneb) 3 ml NEB [id number] [facility] Last Admin: 09/10/17 07:59 Dose: 3 ml Apixaban (Eliquis) 2.5 mg PO BID [facility] Last Admin: 09/10/17 08:27 Dose: 2.5 mg Artificial Tears (Tears Naturale) 0 drop EA EYE PRN PRN PRN Reason: Dry Eyes Aspirin (Aspirin Chewable) 81 mg PO DAILY [facility] Last Admin: 09/10/17 08:28 Dose: 81 mg Cyanocobalamin (Vitamin B-12) 1,000 mcg PO DAILY [facility] Last Admin: 09/10/17 08:27 Dose: 1,000 mcg Dextrose/Water (Dextrose 50%) 25 gm SLOW IVP PRN PRN PRN Reason: Hypoglycemia Ferrous Sulfate (Feosol) 325 mg PO QAM-WM [facility] Last Admin: 09/10/17 08:28 Dose: 325 mg Folic Acid (Folvite) 1 mg PO DAILY [facility] Last Admin: 09/10/17 08:27 Dose: 1 mg Glucagon (Glucagon) 1 mg IM PRN PRN PRN Reason: Hypoglycemia Guaifenesin (Robitussin Sf) 200 mg PO Q4H PRN PRN Reason: Cough Guaifenesin (Mucinex) 600 mg PO Q12HR [facility] Last Admin: 09/10/17 08:27 Dose: 600 mg Hydralazine HCl (Apresoline) 10 mg SLOW IVP Q4H PRN PRN Reason: Systolic BP > 180 Dextrose/Water (D5w) 1,000 mls @ 0 mls/hr IV .Q0M PRN; As Directed PRN Reason: Hypoglycemia Diltiazem HCl 125 mg/Miscellaneous Medication 1 each/ Sodium Chloride 125 mls @ 0 mls/hr IVPB INF STEPHANIE; As Directed PRN Reason: Protocol Last Admin: 09/07/17 20:03 Dose: 125 mls Levofloxacin 500 mg/ Device 100 mls @ 100 mls/hr IVPB 2200 STEPH[facility]IE Sodium Chloride (Normal Saline 0.9%) 1,000 mls @ 70 mls/hr IV .[id number] [facility] Last Admin: 09/10/17 09:47 Dose: Not Given Insulin Human Lispro (Humalog) 0 units SC .MODERATE SLIDING SC PRN PRN Reason: Moderate Correctional Scale Last Admin: 09/10/17 11:09 Dose: 2 unit Insulin Human Lispro (Humalog) 0 units SC .BEDTIME SLIDING SC PRN PRN Reason: Bedtime Correctional Scale Last Admin: 09/09/17 21:34 Dose: 2 unit Iron/Minerals/Multivitamins (Theragran M) 1 tab PO DAILY [facility] Last Admin: 09/10/17 08:28 Dose: 1 tab Levothyroxine Sodium (Synthroid) 50 mcg PO 0600 [facility] Loperamide HCl (Imodium) 2 mg PO PRN PRN PRN Reason: Diarrhea/Loose Stools Loratadine (Claritin) 10 mg PO DAILYPRN PRN PRN Reason: Sinus Symptoms Magnesium Hydroxide (Milk Of Magnesium) 30 ml PO DAILYPRN PRN PRN Reason: Constipation Metoprolol Tartrate (Lopressor) 50 mg PO BID [facility] Last Admin: 09/10/17 08:28 Dose: 50 mg Mineral Oil/White Petrolatum (Eucerin Cream) 0 gm TOP BIDPRN PRN PRN Reason: Dry Skin Ondansetron HCl (Zofran Odt) 4 mg PO Q6H PRN PRN Reason: Nausea/Vomiting Ondansetron HCl (Zofran) 4 mg IVP Q6H PRN PRN Reason: Nausea/Vomiting Pantoprazole Sodium (Protonix) 40 mg PO DAILY [facility] Last Admin: 09/10/17 08:28 Dose: 40 mg Phenol (Chloraseptic [place] 180 Ml Bot) 0 ml PO PRN PRN PRN Reason: Sore Throat Saccharomyces Boulardii (Florastor) 250 mg PO DAILY [facility] Last Admin: 09/10/17 08:28 Dose: 250 mg Senna (Senokot) 2 tab PO HSPRN PRN PRN Reason: Constipation Sodium Chloride ([place] Nasal [place] 0.65%) 0 ml EA NARE QIDPRN PRN PRN Reason: Nasal Congestion Sodium Chloride (Flush - Normal Saline) 10 ml IVF Q12HR [facility] Last Admin: 09/10/17 08:30 Dose: 10 ml Sodium Chloride (Flush - Normal Saline) 10 ml IVF PRN PRN PRN Reason: Saline Flush Valsartan (Diovan) 160 mg PO DAILY [facility] Last Admin: 09/10/17 08:27 Dose: 160 mg Verapamil HCl ([place] Sr) 240 mg PO QPM [facility]
--- NOTE | 2017-09-10 15:29 | PRG ---
DATE OF SERVICE: 09/10/2017 SUBJECTIVE: Ms. Cuadra is doing better. No chest pain or pressure noted. Her monitor appears to b e a coarse atrial fibrillation versus flutter. OBJECTIVE: VITAL SIGNS: Blood pressure 165/90, pulse 70, temperature afebrile. LUNGS: Clear to auscultation. CARDIAC: Irregular, irregular. ABDOMEN: Soft, nontender, nondistended. EXTREMITIES: No edema. IMPRESSION: 1. Mildly elevated troponin. 2. Sepsis. 3. Atrial fibrillation. RECOMMENDATIONS: Continue Eliquis at current dose. She is also on aspirin for recent non-Q wave OH, likely due to demand ischemia. Continue metoprolol at 50 mg p.o. b.i.d. Echo with Doppler did show LVEF 50%-55% with no wall motion abnormalities. May consider a noninvasive stress study as long as she continues to be stable as an outpatient.
--- NOTE | 2017-09-10 17:35 | PRG ---
DATE OF SERVICE: 09/10/2017 Ms. Cuadra has no new complaints. Her ultrasound did not show any evidence of an obstruction. There is a density in her right kidney superiorly that was incompletely imaged. As an outpatient, zoey ram probably needs CT scanning of her abdomen. Her lungs, heart, and abdomen are unchanged. Her ejection fraction was normal on echo. Her renal function has almost returned to normal, so she could at this point in time switch to p.o. Levaquin. Her hemodynamics certainly have been stable. She is stable to move out of the critical ca re environment.
[2017-09-11] MEDS: Levothyroxine Sodium 50 MCG TAB PO SCH (06:50)
--- NOTE | 2017-09-11 07:48 | EKG ---
Test Reason : Blood Pressure : / mmHG Vent. Rate : 076 BPM Atrial Rate : 089 BPM P-R Int : 000 ms QRS Dur : 090 ms QT Int : 426 ms P-R-T Axes : 000 048 017 degrees QTc Int : 479 ms Atrial fibrillation T wave abnormality, consider anterior ischemia or digitalis effect Prolonged QT Abnormal ECG When compared with ECG of 08-SEP-2017 02:41, (Unconfirmed) No significant change was found Confirmed by MADINA CAST ([id number]) on 09/11/2017 7:48:33 AM Referred By: FABIEN Confirmed By:MADINA CAST
[2017-09-11] MEDS: Valsartan 80 MG TAB PO SCH (08:28)
[2017-09-11] MEDS: guaiFENesin ER 600 MG TAB PO SCH ×2 (08:29→21:08)
[2017-09-11] MEDS: Folic Acid 1 MG TAB PO SCH (08:29)
[2017-09-11] MEDS: Apixaban 5 MG TAB PO SCH ×2 (08:29→21:07)
[2017-09-11] MEDS: Multivitamin W/ Minerals 1 TAB PO SCH (08:29)
[2017-09-11] MEDS: Cyanocobalamin (Vitamin B-12) 1,000 MCG TAB PO SCH (08:29)
[2017-09-11] MEDS: Saccharomyces boulardii 250 MG CAP PO SCH (08:29)
[2017-09-11] MEDS: Metoprolol Tartrate 50 MG TAB PO SCH ×2 (08:29→21:08)
[2017-09-11] MEDS: Ferrous Sulfate 325 MG TAB PO SCH (08:29)
[2017-09-11 09:09] LABS: Anion Gap 12 mmol/L (10-20); BUN (Urea Nitrogen) 32 mg/dL (9.8-20.1); Calc. Creatinine Clearance 24 mL/min (70-130); Calcium 8.2 mg/dL (7.8-10.44); Carbon Dioxide 14 mmol/L (23-31); Chloride 110 mmol/L (98-107); Estimated GFR-MDRD 39
[2017-09-11 09:53] LABS: Band 2 % (5-11); Hematocrit 35.2 % (36.0-47.0); Mean Platelet Volume 7.7 fL (7.4-10.4); Neutrophil 83 % (42-75); Polychromasia SLIGHT = 2-3 cells (100X) (0-2/hpf); Red Blood Cell (RBC) Count 4.75 mill/uL (4.20-5.40); Target Cells SLIGHT = 2-5 cells (100X) (0-1/hpf); White Blood Cell (WBC) Count 17.1 thou/uL (4.8-10.8)
--- NOTE | 2017-09-11 11:09 | PDOC.PN ---
- Subjective Encounter Start Date: 09/11/17 Encounter Start Time: 08:00 pt is weak, still has cough, no chest pain - Objective Resuscitation Status: Resuscitation Status FULL:Full Resuscitation MAR Reviewed: Yes Vital Signs & Weight: Vital Signs (12 hours) Temp Pulse Resp BP BP Pulse Ox 09/11/17 08:00 97.7 F 52 L 16 141/67 H 99 09/11/17 07:51 85 20 98 09/11/17 06:51 60 18 125/67 98 09/11/17 03:55 76 18 158/74 H 09/11/17 03:33 97.8 F 85 18 182/97 H 09/11/17 00:21 82 20 99 Weight Admit Weight 108 lb 7.479 oz Most Recent Monitor Data Heart Rate from ECG 90 NIBP 157/96 NIBP BP-Mean 119 Respiration from ECG 21 SpO2 99 I&O: 09/10/17 09/11/17 09/12/17 06:59 06:59 06:59 Intake Total 2048 1235 Output Total 795 285 Balance 1253 950 Result Diagrams: 09/11/17 07:11 09/11/17 08:14 Additional Labs: Accuchecks 09/11/17 09/10/17 09/10/17 05:45 20:37 15:43 POC Glucose 141 H 190 H 158 H 09/10/17 11:08 POC Glucose 180 H EKG Reviewed by me: Yes Phys Exam - Physical Examination Constitutional: NAD HEENT: PERRLA, moist MMs, sclera anicteric Neck: no JVD, supple Respiratory: no wheezing, no rales, no rhonchi Cardiovascular: no significant murmur, no rub, irregular Gastrointestinal: soft, non-tender, no distention, positive bowel sounds Musculoskeletal: no edema, pulses present Neurological: non-focal, normal sensation Lymphatic: no nodes Psychiatric: normal affect Skin: no rash, normal turgor Dx/Plan (1) Acute kidney failure Status: Acute (2) Atrial fibrillation with RVR Code(s): I48.91 - UNSPECIFIED ATRIAL FIBRILLATION Status: Acute (3) Bacteremia due to Escherichia coli Code(s): R78.81 - BACTEREMIA Status: Acute (4) CAP (community acquired pneumonia) Code(s): J18.9 - PNEUMONIA, UNSPECIFIED ORGANISM Status: Acute (5) H/O: CVA (cerebrovascular accident) Code(s): Z86.73 - PRSNL HX OF TIA (TIA), AND CEREB INFRC W/O RESID DEFICITS Status: Acute (6) Hypotension Status: Acute (7) Lactic acidosis Code(s): E87.2 - ACIDOSIS Status: Acute (8) Non-ST elevation myocardial infarction (NSTEMI), type 2 Code(s): I21.A1 - MYOCARDIAL INFARCTION TYPE 2 Status: Acute (9) Sepsis with acute organ dysfunction Code(s): A41.9 - SEPSIS, UNSPECIFIED ORGANISM; R65.20 - SEVERE SEPSIS WITHOUT SEPTIC SHOCK Status: Acute (10) Transaminitis Code(s): R74.0 - NONSPEC ELEV OF LEVELS OF TRANSAMNS & LACTIC ACID DEHYDRGNSE Status: Acute (11) UTI (urinary tract infection) Status: Acute (12) HTN (hypertension) Code(s): I10 - ESSENTIAL (PRIMARY) HYPERTENSION Status: Chronic (13) Protein-calorie malnutrition, moderate Code(s): E44.0 - MODERATE PROTEIN-CALORIE MALNUTRITION Status: Chronic - Plan cont current plan of care, continue antibiotics, PT/OT, manager social, respiratory therapy * continue elliquis * rate controlled * continue PT * rehab screen * if pt and family does not want rehab which is recommended, then home health is option * tomorrow will repeat labs and chest xray * medication reviewed as below * symptomatic treatment. Review of Systems - Review of Systems Constitutional: Weakness. negative: Fever, Chills, Sweats, Malaise, Other Respiratory: Cough, SOB with Excertion. negative: Dry, Shortness of Breath, Hemoptysis, Pleuritic Pain, Sputum, Wheezing Cardiovascular: negative: Chest Pain, Palpitations, Orthopnea, Paroxysmal Noc. Dyspnea, Edema, Light Headedness, Other Gastrointestinal: negative: Nausea, Vomiting, Abdominal Pain, Diarrhea, Constipation, Melena, Hematochezia, Other Genitourinary: negative: Dysuria, Frequency, Incontinence, Hematuria, Retention , Other Musculoskeletal: negative: Neck Pain, Shoulder Pain, Arm Pain, Back Pain, Hand Pain, Leg Pain, Foot Pain, Other Skin: negative: Rash, Lesions, Freedom, Bruising, Other - Medications/Allergies Allergies/Adverse Reactions: Allergies Allergy/AdvReac Type Severity Reaction Status Date / Time No Known Allergies Allergy Verified 12/02/17 19:56 Medications: Current Medications Acetaminophen (Tylenol) 650 mg PO Q4H PRN PRN Reason: Headache/Fever or Pain Last Admin: 09/07/17 23:08 Dose: 650 mg Hydrocodone Bitart/Acetaminophen ([place] 5/325) 1 tab PO Q4H PRN PRN Reason: Moderate Pain (4-6) Al Hydroxide/Mg Hydroxide (Maalox) 30 ml PO Q6H PRN PRN Reason: Heartburn or Indigestion Albuterol/Ipratropium (Duoneb) 3 ml NEB [id number] [facility] Last Admin: 09/11/17 07:51 Dose: 3 ml Apixaban (Eliquis) 2.5 mg PO BID [facility] Last Admin: 09/11/17 08:29 Dose: 2.5 mg Artificial Tears (Tears Naturale) 0 drop EA EYE PRN PRN PRN Reason: Dry Eyes Aspirin (Aspirin Chewable) 81 mg PO DAILY [facility] Last Admin: 09/11/17 08:29 Dose: 81 mg Cyanocobalamin (Vitamin B-12) 1,000 mcg PO DAILY [facility] Last Admin: 09/11/17 08:29 Dose: 1,000 mcg Dextrose/Water (Dextrose 50%) 25 gm SLOW IVP PRN PRN PRN Reason: Hypoglycemia Ferrous Sulfate (Feosol) 325 mg PO QAM-WM [facility] Last Admin: 09/11/17 08:29 Dose: 325 mg Folic Acid (Folvite) 1 mg PO DAILY [facility] Last Admin: 09/11/17 08:29 Dose: 1 mg Glucagon (Glucagon) 1 mg IM PRN PRN PRN Reason: Hypoglycemia Guaifenesin (Robitussin Sf) 200 mg PO Q4H PRN PRN Reason: Cough Guaifenesin (Mucinex) 600 mg PO Q12HR [facility] Last Admin: 09/11/17 08:29 Dose: 600 mg Hydralazine HCl (Apresoline) 10 mg SLOW IVP Q4H PRN PRN Reason: Systolic BP > 180 Dextrose/Water (D5w) 1,000 mls @ 0 mls/hr IV .Q0M PRN; As Directed PRN Reason: Hypoglycemia Diltiazem HCl 125 mg/Miscellaneous Medication 1 each/ Sodium Chloride 125 mls @ 0 mls/hr IVPB INF STEPHANIE; As Directed PRN Reason: Protocol Last Admin: 09/07/17 20:03 Dose: 125 mls Insulin Human Lispro (Humalog) 0 units SC .MODERATE SLIDING SC PRN PRN Reason: Moderate Correctional Scale Last Admin: 09/10/17 18:35 Dose: 2 unit Insulin Human Lispro (Humalog) 0 units SC .BEDTIME SLIDING SC PRN PRN Reason: Bedtime Correctional Scale Last Admin: 09/09/17 21:34 Dose: 2 unit Iron/Minerals/Multivitamins (Theragran M) 1 tab PO DAILY [facility] Last Admin: 09/11/17 08:29 Dose: 1 tab Levofloxacin (Levaquin) 500 mg PO 0600 [facility] Last Admin: 09/11/17 06:49 Dose: 500 mg Levothyroxine Sodium (Synthroid) 50 mcg PO 0600 [facility] Last Admin: 09/11/17 06:50 Dose: 50 mcg Loperamide HCl (Imodium) 2 mg PO PRN PRN PRN Reason: Diarrhea/Loose Stools Loratadine (Claritin) 10 mg PO DAILYPRN PRN PRN Reason: Sinus Symptoms Magnesium Hydroxide (Milk Of Magnesium) 30 ml PO DAILYPRN PRN PRN Reason: Constipation Metoprolol Tartrate (Lopressor) 50 mg PO BID [facility] Last Admin: 09/11/17 08:29 Dose: 50 mg Mineral Oil/White Petrolatum (Eucerin Cream) 0 gm TOP BIDPRN PRN PRN Reason: Dry Skin Ondansetron HCl (Zofran Odt) 4 mg PO Q6H PRN PRN Reason: Nausea/Vomiting Ondansetron HCl (Zofran) 4 mg IVP Q6H PRN PRN Reason: Nausea/Vomiting Pantoprazole Sodium (Protonix) 40 mg PO DAILY [facility] Last Admin: 09/11/17 08:29 Dose: 40 mg Phenol (Chloraseptic [place] 180 Ml Bot) 0 ml PO PRN PRN PRN Reason: Sore Throat Saccharomyces Boulardii (Florastor) 250 mg PO DAILY [facility] Last Admin: 09/11/17 08:29 Dose: 250 mg Senna (Senokot) 2 tab PO HSPRN PRN PRN Reason: Constipation Sodium Chloride ([place] Nasal [place] 0.65%) 0 ml EA NARE QIDPRN PRN PRN Reason: Nasal Congestion Sodium Chloride (Flush - Normal Saline) 10 ml IVF Q12HR [facility] Last Admin: 09/11/17 08:30 Dose: 10 ml Sodium Chloride (Flush - Normal Saline) 10 ml IVF PRN PRN PRN Reason: Saline Flush Valsartan (Diovan) 160 mg PO DAILY [facility] Last Admin: 09/11/17 08:28 Dose: 160 mg Verapamil HCl (Calan Sr) 240 mg PO QPM [facility] Last Admin: 09/10/17 20:12 Dose: 240 mg
[2017-09-11] MEDS: HumaLOG 300 UNITS/3 ML VIAL SC PRN ×2 (11:11→17:09)
--- NOTE | 2017-09-11 19:19 | PRG ---
DATE OF SERVICE: 09/11/2017 Jackie Cuadra has no complaints. PHYSICAL EXAMINATION: GENERAL: She is afebrile. VITAL SIGNS: Heart rate in the 80s, respiratory rate in the 20s, oximetry is 98%, blood pressure 166 /90, has been up at 190/85 this afternoon. LUNGS: Clear. HEART: Regular rhythm. IMPRESSION: 1. Atrial fibrillation/atrial flutter. 2. Escherichia coli bacteremia secondary to urinary tract infection and pyelonephritis with no obstr ucting stone. 3. Cystic lesion on her chronic kidney. This needs to be imaged, do the CT of her kidneys with and without contrast once she is discharged. 4. Atrial fibrillation/atrial flutter being evaluated by electrophysiology. 5. Deconditioning, although she had gone through rehabilitation and then worked herself up to where she was walking 2 miles a day. PLAN: Continue supportive care. Physical therapy needs to be walking.
--- NOTE | 2017-09-11 20:38 | PRG ---
DATE OF SERVICE: 09/11/2017 SUBJECTIVE: Ms. Cuadra is doing well. No current complaints. No chest pain or pressure noted. No shortness of breath, lightheadedness or dizziness. I did speak at length to her daughter today. PHYSICAL EXAMINATION: VITAL SIGNS: Blood pressure 139/88, pulse 76, temperature 97.8. LUNGS: Clear to auscultation. HEART: Irregularly irregular. ABDOMEN: Soft, nontender, nondistended. EXTREMITIES: No edema. IMPRESSION: 1. Recent sepsis. 2. Elevated troponin. 3. Atrial fibrillation. RECOMMENDATIONS: 1. Continue Eliquis in addition to low-dose aspirin and beta mary therapy. 2. She has no current symptoms of angina. We would recommend a followup appointment with me in the next 1-2 weeks. 3. Antibiotic treatment per primary team. 4. Otherwise, I have no further recommendations. Please reconsult if needed.
[2017-09-12] MEDS: Levothyroxine Sodium 50 MCG TAB PO SCH (05:34)
[2017-09-12 05:37] LABS: Anion Gap 13 mmol/L (10-20); BUN (Urea Nitrogen) 27 mg/dL (9.8-20.1); Calc. Creatinine Clearance 30 mL/min (70-130); Calcium 8.4 mg/dL (7.8-10.44); Carbon Dioxide 17 mmol/L (23-31); Chloride 108 mmol/L (98-107); Estimated GFR-MDRD 44
[2017-09-12 06:03] LABS: Hypochromia SLIGHT = 6-15 cells (100X) (0-5/hpf); Mean Platelet Volume 6.8 fL (7.4-10.4); Microcytosis SLIGHT = 6-15 cells (100X) (0-5/hpf); Neutrophil 82 % (42-75); Red Blood Cell (RBC) Count 4.63 mill/uL (4.20-5.40); Target Cells SLIGHT = 2-5 cells (100X) (0-1/hpf); Toxic Granulation SLIGHT; White Blood Cell (WBC) Count 11.6 thou/uL (4.8-10.8)
[2017-09-12] MEDS: Ferrous Sulfate 325 MG TAB PO SCH (08:13)
[2017-09-12] MEDS: Cyanocobalamin (Vitamin B-12) 1,000 MCG TAB PO SCH (08:13)
[2017-09-12] MEDS: guaiFENesin ER 600 MG TAB PO SCH ×2 (08:13→20:37)
[2017-09-12] MEDS: Metoprolol Tartrate 50 MG TAB PO SCH ×2 (08:13→20:37)
[2017-09-12] MEDS: Saccharomyces boulardii 250 MG CAP PO SCH (08:13)
[2017-09-12] MEDS: Folic Acid 1 MG TAB PO SCH (08:13)
[2017-09-12] MEDS: Apixaban 5 MG TAB PO SCH ×2 (08:13→20:37)
[2017-09-12] MEDS: Multivitamin W/ Minerals 1 TAB PO SCH (08:13)
[2017-09-12] MEDS: HumaLOG 300 UNITS/3 ML VIAL SC PRN ×2 (08:13→16:49)
[2017-09-12] MEDS: Valsartan 80 MG TAB PO SCH (08:13)
--- NOTE | 2017-09-12 09:19 | RAD ---
CHEST PA AND LATERAL: HISTORY: An 87-year-old female with pneumonia. COMPARISON: 09/08/17. FINDINGS: Monitor leads overlie the chest. Cardiomegaly. Moderate right pleural effusion with a smaller left pleural effusion. There does appear to be some underlying parenchymal change in the right infrahilar region. Slight stranding in the left base. IMPRESSION: Cardiomegaly. Bilateral pleural effusions much larger on the right side with some minimal bibasilar parenchymal changes worse on the right side. The amount of right pleural effusion appears to have wo rsened when compared to the 09/08/17 study. POS: MAI
--- NOTE | 2017-09-12 10:59 | PDOC.PN ---
- Subjective Encounter Start Date: 09/12/17 Encounter Start Time: 07:15 Patient seen and examined. No new complaints. No overnight events - Objective Resuscitation Status: Resuscitation Status FULL:Full Resuscitation MAR Reviewed: Yes Vital Signs & Weight: Vital Signs (12 hours) Temp Pulse Resp BP Pulse Ox 09/12/17 07:57 97.7 F 56 L 16 96 09/12/17 07:55 84 16 96 09/12/17 07:28 97.7 F 56 L 16 168/76 H 96 09/12/17 04:00 98.0 F 57 L 18 145/65 H 94 L 09/12/17 01:01 95 09/12/17 00:59 80 16 95 09/11/17 23:40 88 16 175/85 H Weight Admit Weight 108 lb 7.479 oz Weight 122 lb 8 oz Most Recent Monitor Data Heart Rate from ECG 90 NIBP 157/96 NIBP BP-Mean 119 Respiration from ECG 21 SpO2 99 I&O: 09/11/17 09/12/17 09/13/17 06:59 06:59 06:59 Intake Total 1235 960 Output Total 285 850 Balance 950 110 Result Diagrams: 09/12/17 05:00 09/12/17 05:00 Additional Labs: Accuchecks 09/12/17 09/11/17 09/11/17 06:02 21:24 16:53 POC Glucose 171 H 133 H 170 H 09/11/17 10:49 POC Glucose 166 H Radiology Reviewed by me: Yes (chest xray) EKG Reviewed by me: Yes Phys Exam - Physical Examination Constitutional: NAD HEENT: PERRLA, moist MMs, sclera anicteric Neck: no JVD, supple Respiratory: no wheezing, no rales, no rhonchi Cardiovascular: no significant murmur, irregular Gastrointestinal: soft, non-tender, no distention, positive bowel sounds Musculoskeletal: no edema, pulses present Neurological: non-focal, normal sensation Lymphatic: no nodes Psychiatric: normal affect Skin: no rash, normal turgor Dx/Plan (1) Acute kidney failure Status: Acute Comment: improving (2) Atrial fibrillation with RVR Code(s): I48.91 - UNSPECIFIED ATRIAL FIBRILLATION Status: Acute Comment: rate controlled (3) Bacteremia due to Escherichia coli Code(s): R78.81 - BACTEREMIA Status: Acute (4) CAP (community acquired pneumonia) Code(s): J18.9 - PNEUMONIA, UNSPECIFIED ORGANISM Status: Acute (5) H/O: CVA (cerebrovascular accident) Code(s): Z86.73 - PRSNL HX OF TIA (TIA), AND CEREB INFRC W/O RESID DEFICITS Status: Acute (6) Hypotension Status: Resolved (7) Lactic acidosis Code(s): E87.2 - ACIDOSIS Status: Resolved (8) Non-ST elevation myocardial infarction (NSTEMI), type 2 Code(s): I21.A1 - MYOCARDIAL INFARCTION TYPE 2 Status: Acute (9) Sepsis with acute organ dysfunction Code(s): A41.9 - SEPSIS, UNSPECIFIED ORGANISM; R65.20 - SEVERE SEPSIS WITHOUT SEPTIC SHOCK Status: Acute (10) Transaminitis Code(s): R74.0 - NONSPEC ELEV OF LEVELS OF TRANSAMNS & LACTIC ACID DEHYDRGNSE Status: Acute Comment: due to sepsis (11) UTI (urinary tract infection) Status: Acute (12) HTN (hypertension) Code(s): I10 - ESSENTIAL (PRIMARY) HYPERTENSION Status: Chronic (13) Protein-calorie malnutrition, moderate Code(s): E44.0 - MODERATE PROTEIN-CALORIE MALNUTRITION Status: Chronic - Plan cont current plan of care, continue antibiotics, PT/OT, 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 Review of Systems - Review of Systems Constitutional: Weakness. negative: Fever, Chills, Sweats, Malaise, Other ENT: negative: Ear Pain, Ear Discharge, Nose Pain, Nose Discharge, Nose Congestion, Mouth Pain, Mouth Swelling, Throat Pain, Throat Swelling, Other Respiratory: negative: Cough, Dry, Shortness of Breath, Hemoptysis, SOB with Excertion, Pleuritic Pain, Sputum, Wheezing Cardiovascular: negative: Chest Pain, Palpitations, Orthopnea, Paroxysmal Noc. Dyspnea, Edema, Light Headedness, Other Gastrointestinal: negative: Nausea, Vomiting, Abdominal Pain, Diarrhea, Constipation, Melena, Hematochezia, Other Genitourinary: negative: Dysuria, Frequency, Incontinence, Hematuria, Retention , Other Musculoskeletal: negative: Neck Pain, Shoulder Pain, Arm Pain, Back Pain, Hand Pain, Leg Pain, Foot Pain, Other - Medications/Allergies Allergies/Adverse Reactions: Allergies Allergy/AdvReac Type Severity Reaction Status Date / Time No Known Allergies Allergy Verified 09/07/17 19:56 Medications: Current Medications Acetaminophen (Tylenol) 650 mg PO Q4H PRN PRN Reason: Headache/Fever or Pain Last Admin: 09/07/17 23:08 Dose: 650 mg Hydrocodone Bitart/Acetaminophen ([place] 5/325) 1 tab PO Q4H PRN PRN Reason: Moderate Pain (4-6) Al Hydroxide/Mg Hydroxide (Maalox) 30 ml PO Q6H PRN PRN Reason: Heartburn or Indigestion Albuterol/Ipratropium (Duoneb) 3 ml NEB [id number] [facility] Last Admin: 09/12/17 07:55 Dose: 3 ml Apixaban (Eliquis) 2.5 mg PO BID [facility] Last Admin: 09/12/17 08:13 Dose: 2.5 mg Artificial Tears (Tears Naturale) 0 drop EA EYE PRN PRN PRN Reason: Dry Eyes Aspirin (Aspirin Chewable) 81 mg PO DAILY [facility] Last Admin: 09/12/17 08:13 Dose: 81 mg Cyanocobalamin (Vitamin B-12) 1,000 mcg PO DAILY [facility] Last Admin: 09/12/17 08:13 Dose: 1,000 mcg Dextrose/Water (Dextrose 50%) 25 gm SLOW IVP PRN PRN PRN Reason: Hypoglycemia Ferrous Sulfate (Feosol) 325 mg PO QAM-WM [facility] Last Admin: 09/12/17 08:13 Dose: 325 mg Folic Acid (Folvite) 1 mg PO DAILY [facility] Last Admin: 09/12/17 08:13 Dose: 1 mg Glucagon (Glucagon) 1 mg IM PRN PRN PRN Reason: Hypoglycemia Guaifenesin (Robitussin Sf) 200 mg PO Q4H PRN PRN Reason: Cough Guaifenesin (Mucinex) 600 mg PO Q12HR [facility] Last Admin: 09/12/17 08:13 Dose: 600 mg Hydralazine HCl (Apresoline) 10 mg SLOW IVP Q4H PRN PRN Reason: Systolic BP > 180 Dextrose/Water (D5w) 1,000 mls @ 0 mls/hr IV .Q0M PRN; As Directed PRN Reason: Hypoglycemia Diltiazem HCl 125 mg/Miscellaneous Medication 1 each/ Sodium Chloride 125 mls @ 0 mls/hr IVPB INF [facility]; As Directed PRN Reason: Protocol Last Admin: 09/07/17 20:03 Dose: 125 mls Insulin Human Lispro (Humalog) 0 units SC .MODERATE SLIDING SC PRN PRN Reason: Moderate Correctional Scale Last Admin: 09/12/17 08:13 Dose: 2 unit Insulin Human Lispro (Humalog) 0 units SC .BEDTIME SLIDING SC PRN PRN Reason: Bedtime Correctional Scale Last Admin: 09/09/17 21:34 Dose: 2 unit Iron/Minerals/Multivitamins (Theragran M) 1 tab PO DAILY [facility] Last Admin: 09/12/17 08:13 Dose: 1 tab Levofloxacin (Levaquin) 500 mg PO 0600 [facility] Last Admin: 09/12/17 05:34 Dose: 500 mg Levothyroxine Sodium (Synthroid) 50 mcg PO 0600 [facility] Last Admin: 09/12/17 05:34 Dose: 50 mcg Loperamide HCl (Imodium) 2 mg PO PRN PRN PRN Reason: Diarrhea/Loose Stools Loratadine (Claritin) 10 mg PO DAILYPRN PRN PRN Reason: Sinus Symptoms Magnesium Hydroxide (Milk Of Magnesium) 30 ml PO DAILYPRN PRN PRN Reason: Constipation Metoprolol Tartrate (Lopressor) 50 mg PO BID [facility] Last Admin: 09/12/17 08:13 Dose: 50 mg Mineral Oil/White Petrolatum (Eucerin Cream) 0 gm TOP BIDPRN PRN PRN Reason: Dry Skin Ondansetron HCl (Zofran Odt) 4 mg PO Q6H PRN PRN Reason: Nausea/Vomiting Ondansetron HCl (Zofran) 4 mg IVP Q6H PRN PRN Reason: Nausea/Vomiting Pantoprazole Sodium (Protonix) 40 mg PO DAILY [facility] Last Admin: 09/12/17 08:13 Dose: 40 mg Phenol (Chloraseptic [place] 180 Ml Bot) 0 ml PO PRN PRN PRN Reason: Sore Throat Saccharomyces Boulardii (Florastor) 250 mg PO DAILY [facility] Last Admin: 09/12/17 08:13 Dose: 250 mg Senna (Senokot) 2 tab PO HSPRN PRN PRN Reason: Constipation Sodium Chloride ([place] Nasal [place] 0.65%) 0 ml EA NARE QIDPRN PRN PRN Reason: Nasal Congestion Sodium Chloride (Flush - Normal Saline) 10 ml IVF Q12HR [facility] Last Admin: 09/12/17 08:14 Dose: 10 ml Sodium Chloride (Flush - Normal Saline) 10 ml IVF PRN PRN PRN Reason: Saline Flush Valsartan (Diovan) 160 mg PO DAILY [facility] Last Admin: 09/12/17 08:13 Dose: 160 mg Verapamil HCl (Calan Sr) 240 mg PO QPM [facility] Last Admin: 09/11/17 21:08 Dose: 240 mg
[2017-09-12] MEDS ORDERED: Furosemide 40 MG/4 ML VIAL SLOW IVP SCH (14:45)
--- NOTE | 2017-09-12 16:33 | PRG ---
DATE OF SERVICE: 09/12/2017 SUBJECTIVE: Ms. Cuadra is walking in the [place] without any distress. She has no complaints. OBJECTIVE: VITAL SIGNS: She is afebrile, heart rate is in the 60s, respiratory rate is in the teens, oximetry i s 96. She is still moderately hypertensive with blood pressures in the 170s-180s this afternoon. LUNGS: Clear. HEART: Regular rhythm. LABORATORY DATA: White count 11.6, hemoglobin 10.5, platelets 128. Sodium 134, potassium 3.6, chlor aliyah 108, bicarbonate 17, BUN 27, creatinine 1.16. IMPRESSION: 1. Escherichia coli bacteremia secondary to pyelonephritis. 2. Cystic lesion in her kidney. This needs to be imaged as an outpatient. I relayed to the carlos a myas to relate to Dr. Vasques that her kidney needs to the scanned in approximately 1 month per Urology' s recommendations (phone call). 3. Her pleural effusions are most likely related to atrial fibrillation. I have recommended a [facility] chest radiograph with me in a month. 4. Electrophysiology has seen her. 5. Deconditioning. She is being evaluated for rehab. I asked her daughter to call my office for an appointment in a month with a chest radiograph. We will sign off.
--- NOTE | 2017-09-12 20:56 | ADD-PRG ---
DATE OF SERVICE: 09/12/2017 ADDENDUM I do not feel Ms. Cuadra had pneumonia on admission. Her pleural effusions are overwhelmingly likely related to her atrial fibrillation and atrial flutter .
[2017-09-13] MEDS ORDERED: Furosemide 40 MG/4 ML VIAL SLOW IVP SCH (06:00)
[2017-09-13] MEDS: Levothyroxine Sodium 50 MCG TAB PO SCH (06:52)
[2017-09-13 07:10] LABS: Hematocrit 35.1 % (36.0-47.0); Mean Platelet Volume 11.2 fL (7.4-10.4); White Blood Cell (WBC) Count 10.5 thou/uL (4.8-10.8)
[2017-09-13 07:13] LABS: Anion Gap 14 mmol/L (10-20); BUN (Urea Nitrogen) 20 mg/dL (9.8-20.1); Calc. Creatinine Clearance 28 mL/min (70-130); Calcium 8.9 mg/dL (7.8-10.44); Carbon Dioxide 24 mmol/L (23-31); Chloride 102 mmol/L (98-107); Estimated GFR-MDRD 46; Magnesium 1.5 mg/dL (1.6-2.6); Phosphorus 3.2 mg/dL (2.3-4.7)
[2017-09-13 08:26] LABS: #Eosinphils 0.2 thou/uL (0.0-0.7); #Lymphocytes 1.2 thou/uL (1.20-3.40); #Monocytes 0.7 thou/uL (0.11-0.59); %Basophils 0.3 % (0.0-1.0); %Eosinophils 1.6 % (0.0-10.0); %Lymphocytes 11.1 % (21.0-51.0); Band 4 % (5-11); Hypochromia MODERATE=16-30 cells (100X) (0-5/hpf); Microcytosis SLIGHT = 6-15 cells (100X) (0-5/hpf); Neutrophil 75 % (42-75); Polychromasia MODERATE = 3-4 cells (100X) (0-2/hpf); Schistocytes SLIGHT = 2-5 cells (100X) (0-1/hpf); Target Cells MARKED = >16 cells (100X) (0-1/hpf)
[2017-09-13] MEDS ORDERED: Potassium Chloride 20 MEQ TAB PO SCH ×2 (08:45→13:00)
[2017-09-13] MEDS ORDERED: Magnesium Sulfate 4 GM in Sodium Chloride 0.9% 250 ML 250 ML IVPB SCH (08:45)
[2017-09-13] MEDS: Ferrous Sulfate 325 MG TAB PO SCH (09:52)
[2017-09-13] MEDS: Apixaban 5 MG TAB PO SCH (09:52)
[2017-09-13] MEDS: Saccharomyces boulardii 250 MG CAP PO SCH (09:52)
[2017-09-13] MEDS: Multivitamin W/ Minerals 1 TAB PO SCH (09:53)
[2017-09-13] MEDS: Metoprolol Tartrate 50 MG TAB PO SCH (09:53)
[2017-09-13] MEDS: guaiFENesin ER 600 MG TAB PO SCH (09:53)
[2017-09-13] MEDS: Folic Acid 1 MG TAB PO SCH (09:53)
[2017-09-13] MEDS: Cyanocobalamin (Vitamin B-12) 1,000 MCG TAB PO SCH (09:53)
[2017-09-13] MEDS: Valsartan 80 MG TAB PO SCH (10:02)
--- NOTE | 2017-09-13 10:12 | PDOC.PN ---
- Subjective Encounter Start Date: 09/13/17 Encounter Start Time: 09:20 Patient seen and examined. No new complaints. No overnight events - Objective Resuscitation Status: Resuscitation Status FULL:Full Resuscitation MAR Reviewed: Yes Vital Signs & Weight: Vital Signs (12 hours) Temp Pulse Resp BP Pulse Ox 09/13/17 07:55 97.7 F 79 16 173/84 H 97 09/13/17 06:45 70 16 98 09/13/17 03:20 97.9 F 69 17 175/83 H 96 09/13/17 00:43 80 16 97 09/12/17 23:59 98.7 F 70 18 144/66 H 96 Weight Admit Weight 108 lb 7.479 oz Weight 113 lb 7 oz Most Recent Monitor Data Heart Rate from ECG 90 NIBP 157/96 NIBP BP-Mean 119 Respiration from ECG 21 SpO2 99 I&O: 09/12/17 09/13/17 09/14/17 06:59 06:59 06:59 Intake Total 960 1220 24 Output Total 850 3500 Balance 110 -2280 24 Result Diagrams: 09/13/17 06:45 09/13/17 06:45 Additional Labs: Accuchecks 09/13/17 09/12/17 09/12/17 05:35 19:56 16:35 POC Glucose 118 H 110 181 H 09/12/17 11:31 POC Glucose 137 H EKG Reviewed by me: Yes (NSR) Phys Exam - Physical Examination Constitutional: NAD HEENT: moist MMs Neck: no JVD, supple Respiratory: no wheezing, no rales, no rhonchi Cardiovascular: RRR, no significant murmur, no rub Gastrointestinal: soft, non-tender, no distention Musculoskeletal: no edema, pulses present Neurological: non-focal, normal sensation, moves all 4 limbs Lymphatic: no nodes Psychiatric: normal affect, A&O x 3 Skin: no rash, normal turgor Dx/Plan (1) Acute kidney failure Status: Acute Comment: improving (2) Atrial fibrillation with RVR Code(s): I48.91 - UNSPECIFIED ATRIAL FIBRILLATION Status: Acute Comment: rate controlled (3) Bacteremia due to Escherichia coli Code(s): R78.81 - BACTEREMIA Status: Acute (4) CAP (community acquired pneumonia) Code(s): J18.9 - PNEUMONIA, UNSPECIFIED ORGANISM Status: Acute (5) H/O: CVA (cerebrovascular accident) Code(s): Z86.73 - PRSNL HX OF TIA (TIA), AND CEREB INFRC W/O RESID DEFICITS Status: Acute (6) Hypotension Status: Resolved (7) Lactic acidosis Code(s): E87.2 - ACIDOSIS Status: Resolved (8) Non-ST elevation myocardial infarction (NSTEMI), type 2 Code(s): I21.A1 - MYOCARDIAL INFARCTION TYPE 2 Status: Acute (9) Sepsis with acute organ dysfunction Code(s): A41.9 - SEPSIS, UNSPECIFIED ORGANISM; R65.20 - SEVERE SEPSIS WITHOUT SEPTIC SHOCK Status: Acute (10) Transaminitis Code(s): R74.0 - NONSPEC ELEV OF LEVELS OF TRANSAMNS & LACTIC ACID DEHYDRGNSE Status: Acute Comment: due to sepsis (11) UTI (urinary tract infection) Status: Acute (12) HTN (hypertension) Code(s): I10 - ESSENTIAL (PRIMARY) HYPERTENSION Status: Chronic (13) Protein-calorie malnutrition, moderate Code(s): E44.0 - MODERATE PROTEIN-CALORIE MALNUTRITION Status: Chronic - Plan cont current plan of care, PT/OT, social problems specialist * medication reviewed as below * symptomatic treatment * will replace potassium and magnesium * will discharge to rehab today * see discharge summery today. Review of Systems - Review of Systems ENT: negative: Ear Pain, Ear Discharge, Nose Pain, Nose Discharge, Nose Congestion, Mouth Pain, Mouth Swelling, Throat Pain, Throat Swelling, Other Respiratory: negative: Cough, Dry, Shortness of Breath, Hemoptysis, SOB with Excertion, Pleuritic Pain, Sputum, Wheezing Cardiovascular: negative: Chest Pain, Palpitations, Orthopnea, Paroxysmal Noc. Dyspnea, Edema, Light Headedness, Other Gastrointestinal: negative: Nausea, Vomiting, Abdominal Pain, Diarrhea, Constipation, Melena, Hematochezia, Other Genitourinary: negative: Dysuria, Frequency, Incontinence, Hematuria, Retention , Other Musculoskeletal: negative: Neck Pain, Shoulder Pain, Arm Pain, Back Pain, Hand Pain, Leg Pain, Foot Pain, Other Skin: negative: Rash, Lesions, Freedom, Bruising, Other - Medications/Allergies Allergies/Adverse Reactions: Allergies Allergy/AdvReac Type Severity Reaction Status Date / Time No Known Allergies Allergy Verified 09/07/17 19:56 Medications: Current Medications Acetaminophen (Tylenol) 650 mg PO Q4H PRN PRN Reason: Headache/Fever or Pain Last Admin: 09/07/17 23:08 Dose: 650 mg Hydrocodone Bitart/Acetaminophen ([place] 5/325) 1 tab PO Q4H PRN PRN Reason: Moderate Pain (4-6) Al Hydroxide/Mg Hydroxide (Maalox) 30 ml PO Q6H PRN PRN Reason: Heartburn or Indigestion Albuterol/Ipratropium (Duoneb) 3 ml NEB [id number] [facility] Last Admin: 09/13/17 06:45 Dose: 3 ml Apixaban (Eliquis) 2.5 mg PO BID [facility] Last Admin: 09/13/17 09:52 Dose: 2.5 mg Artificial Tears (Tears Naturale) 0 drop EA EYE PRN PRN PRN Reason: Dry Eyes Aspirin (Aspirin Chewable) 81 mg PO DAILY [facility] Last Admin: 09/13/17 09:53 Dose: 81 mg Cyanocobalamin (Vitamin B-12) 1,000 mcg PO DAILY [facility] Last Admin: 09/13/17 09:53 Dose: 1,000 mcg Dextrose/Water (Dextrose 50%) 25 gm SLOW IVP PRN PRN PRN Reason: Hypoglycemia Ferrous Sulfate (Feosol) 325 mg PO QAM-WM [facility] Last Admin: 09/13/17 09:52 Dose: 325 mg Folic Acid (Folvite) 1 mg PO DAILY [facility] Last Admin: 09/13/17 09:53 Dose: 1 mg Furosemide (Lasix) 40 mg SLOW IVP 0600,1400 [facility] Last Admin: 09/13/17 06:51 Dose: 40 mg Glucagon (Glucagon) 1 mg IM PRN PRN PRN Reason: Hypoglycemia Guaifenesin (Robitussin Sf) 200 mg PO Q4H PRN PRN Reason: Cough Guaifenesin (Mucinex) 600 mg PO Q12HR [facility] Last Admin: 09/13/17 09:53 Dose: 600 mg Hydralazine HCl (Apresoline) 10 mg SLOW IVP Q4H PRN PRN Reason: Systolic BP > 180 Last Admin: 09/12/17 11:31 Dose: 10 mg Dextrose/Water (D5w) 1,000 mls @ 0 mls/hr IV .Q0M PRN; As Directed PRN Reason: Hypoglycemia Magnesium Sulfate 4 gm/ Sodium (Chloride) 258 mls @ 86 mls/hr IVPB NOW [facility] Stop: 09/13/17 11:00 Last Admin: 09/13/17 10:03 Dose: 258 mls Insulin Human Lispro (Humalog) 0 units SC .MODERATE SLIDING SC PRN PRN Reason: Moderate Correctional Scale Last Admin: 09/12/17 16:49 Dose: 2 unit Insulin Human Lispro (Humalog) 0 units SC .BEDTIME SLIDING SC PRN PRN Reason: Bedtime Correctional Scale Last Admin: 09/09/17 21:34 Dose: 2 unit Iron/Minerals/Multivitamins (Theragran M) 1 tab PO DAILY [facility] Last Admin: 09/13/17 09:53 Dose: 1 tab Levofloxacin (Levaquin) 500 mg PO 0600 [facility] Last Admin: 09/13/17 06:52 Dose: 500 mg Levothyroxine Sodium (Synthroid) 50 mcg PO 0600 [facility] Last Admin: 09/13/17 06:52 Dose: 50 mcg Loperamide HCl (Imodium) 2 mg PO PRN PRN PRN Reason: Diarrhea/Loose Stools Loratadine (Claritin) 10 mg PO DAILYPRN PRN PRN Reason: Sinus Symptoms Magnesium Hydroxide (Milk Of Magnesium) 30 ml PO DAILYPRN PRN PRN Reason: Constipation Metoprolol Tartrate (Lopressor) 50 mg PO BID [facility] Last Admin: 09/13/17 09:53 Dose: 50 mg Mineral Oil/White Petrolatum (Eucerin Cream) 0 gm TOP BIDPRN PRN PRN Reason: Dry Skin Ondansetron HCl (Zofran Odt) 4 mg PO Q6H PRN PRN Reason: Nausea/Vomiting Ondansetron HCl (Zofran) 4 mg IVP Q6H PRN PRN Reason: Nausea/Vomiting Pantoprazole Sodium (Protonix) 40 mg PO DAILY [facility] Last Admin: 09/13/17 09:53 Dose: 40 mg Phenol (Chloraseptic [place] 180 Ml Bot) 0 ml PO PRN PRN PRN Reason: Sore Throat Potassium Chloride (K-Dur) 40 meq PO NOW [facility] Stop: 09/13/17 11:00 Last Admin: 09/13/17 09:52 Dose: 40 meq Potassium Chloride (K-Dur) 40 meq PO 1300 [facility] Stop: 09/13/17 15:00 Saccharomyces Boulardii (Florastor) 250 mg PO DAILY [facility] Last Admin: 09/13/17 09:52 Dose: 250 mg Senna (Senokot) 2 tab PO HSPRN PRN PRN Reason: Constipation Sodium Chloride ([place] Nasal [place] 0.65%) 0 ml EA NARE QIDPRN PRN PRN Reason: Nasal Congestion Sodium Chloride (Flush - Normal Saline) 10 ml IVF Q12HR [facility] Last Admin: 09/13/17 06:52 Dose: 10 ml Sodium Chloride (Flush - Normal Saline) 10 ml IVF PRN PRN PRN Reason: Saline Flush Last Admin: 09/13/17 10:03 Dose: 10 ml Valsartan (Diovan) 160 mg PO DAILY [facility] Last Admin: 09/13/17 10:02 Dose: 160 mg Verapamil HCl (Calan Sr) 240 mg PO QPM [facility] Last Admin: 09/12/17 20:37 Dose: 240 mg
--- NOTE | 2017-09-13 11:50 | DIS ---
DATE OF ADMISSION: 09/07/2017 DATE OF DISCHARGE: 09/13/2017 PRIMARY CARE PHYSICIAN: Dr. Ariel Vasques. DISCHARGE DISPOSITION: Rehabilitation. PRIMARY DISCHARGE DIAGNOSES: Acute kidney failure, atrial fibrillation with rapid ventricular respon se, bacteremia due to Escherichia coli, community-acquired pneumonia, urinary tract infection with py elonephritis, demand ischemia with non-ST elevation myocardial infarction type 2, sepsis with acute o rgan dysfunction, abnormal liver function tests due to sepsis, hypotension and lactic acidosis, resol casimiro, acute on chronic diastolic heart failure; abnormal electrolytes, corrected; thrombocytopenia due to sepsis, improved. SECONDARY DISCHARGE DIAGNOSES: Moderate protein-calorie malnutrition, hypertension and history of ce rebrovascular accident. PRIMARY PROCEDURE/OPERATION: None. RADIOLOGICAL INVESTIGATION: Echocardiography on admission showed EF 50-55%. Chest x-ray on admissio n showed right lower lobe infiltration. Repeat chest x-ray showed bilateral pleural effusion. SIGNIFICANT LABORATORIES: WBC 10.5, hemoglobin 11.1, platelet 163. INR 1.1. Sodium 137, potassium 2.9, BUN 20, creatinine 1.13, calcium 8.9, phosphorus 3.2, magnesium 1.5. BNP 777.5. Urinalysis sug gestive of UTI. Blood culture was positive for E. coli. Urine culture was positive for E. coli. In fluenzae negative. Blood culture negative. DISCHARGE MEDICATIONS: Eliquis 2.5 mg p.o. b.i.d., aspirin 81 mg p.o. daily, vitamin B12 1000 mcg p. o. daily, ferrous sulfate 325 mg p.o. daily, folic acid 1 mg p.o. daily, Lasix 40 mg p.o. daily, Leva no 500 mg p.o. daily for 14 days, Synthroid 50 mcg p.o. daily, magnesium oxide 400 mg p.o. daily, m etformin 500 mg p.o. b.i.d., Lopressor 50 mg p.o. b.i.d., multivitamin 1 tablet p.o. daily, potassium chloride 20 mEq p.o. daily, Florastor 250 mg p.o. daily, Zocor 40 mg p.o. at bedtime, valsartan 160 mg p.o. daily, verapamil ER 240 mg p.o. daily. CONTRAINDICATIONS: None. CODE STATUS: FULL CODE. INPATIENT CONSULTANTS: Dr. Rome was consulted for atrial fibrillation with rapid ventricular re sponse. Dr. Corrigan was following for sepsis. TEST RESULTS PENDING ON DISCHARGE: None. ALLERGIES: No known drug allergy. DISCHARGE PLAN: Post hospital, the patient will follow up with Dr. Ariel Vasques in 1 week. The rakesh ent will follow up with Dr. Rome as instructed. HOSPITAL COURSE: An 87-year-old female with the above-mentioned medical problem, who was admitted by me on 09/07/2017. This patient was not feeling good and she was having generalized weakness. She w as having poor p.o. intake and that is why family member brought her to the emergency room. She was found with acute kidney failure. Her creatinine was elevated. She was significantly dehydra susy and she also had sepsis with acute organ dysfunction. Her source of infection was urinary tract as well as right lower lobe pneumonia. Patient was admitte d to ICU. Initially in the emergency room, patient developed atrial fibrillation with rapid ventricular respons e and she became hypotensive and that is why we consulted Dr. Rome. Dr. Rome started on a Cardizem drip and after that the patient's heart rate was under control, patient's blood pressure was improved with IV fluid. This patient's blood culture came back positive for E. coli and predominantly infection was E. coli w ith pyelonephritis, pneumonia was contributing to sepsis. Upon stabilization, the patient was transferred to telemetry floor. After that, we did physical chemist apy, but patient was very weak and family member requested rehab placement. Because of atrial fibrillation and she was given IV fluids for sepsis, she developed pleural effusion that was confirmed with a chest x-ray and that is why we started Lasix therapy and because of Lasix therapy, she had abnormal electrolytes with a low potassium and low magnesium and that was replaced o n the day of discharge. We started Lasix therapy and potassium supplementation for atrial fibrillati on. We started low dose anticoagulation therapy to prevent stroke. At this point, the patient is on room air. She is feeling much better. Clinically, she is up to her normal. She will need fluid restriction and diet salt restriction. On discharge, we are changing t o p.o. antibiotic therapy with Levaquin for another 14 days. The patient is on room air. She is hemodynamically stable. The patient is planned for discharge to inpatient rehabilitation for more PT, OT and further adjustment of medication will be done as an outp atient basis. Patient is seen and examined at bedside today. Please see my progress note from today for further details. Paperwork for discharge done. Discharge medication reconciliation done. Total time spent on discharge day 31 minutes.
[2017-09-13 12:03] VITALS: TEMP 98.7
[2017-09-13 12:23] VITALS: BP 181/82
--- NOTE | 2017-09-17 13:24 | EKG ---
Test Reason : Blood Pressure : / mmHG Vent. Rate : 224 BPM Atrial Rate : 241 BPM P-R Int : 056 ms QRS Dur : 068 ms QT Int : 226 ms P-R-T Axes : 000 103 049 degrees QTc Int : 436 ms Sinus tachycardia with short DC with frequent Premature ventricular complexes and Fusion complexes Rightward axis Abnormal ECG Confirmed by BETTE VALDIVIA ([id number]), assignment editor URIEL FLOYD ([id number]) on 09/17/2017 1:23:36 PM Referred By: SHEA Confirmed By:BETTE VALDIVIA
--- NOTE | 2017-09-17 13:24 | EKG ---
Test Reason : Blood Pressure : / mmHG Vent. Rate : 125 BPM Atrial Rate : 150 BPM P-R Int : 000 ms QRS Dur : 154 ms QT Int : 368 ms P-R-T Axes : 000 105 -08 degrees QTc Int : 531 ms Atrial fibrillation with rapid ventricular response Right bundle branch block Septal infarct , age undetermined T wave abnormality, consider inferior ischemia or digitalis effect Abnormal ECG Confirmed by BETTE VALDIVIA ([id number]), telegraph editor URIEL FLOYD ([id number]) on 09/17/2017 1:23:50 PM Referred By: SHEA Confirmed By:BETTE VALDIVIA
== END 2017-09-13 15:21 | DRG 871 ==
LOC: ERS 12:49 → ERHOLD 15:28 → CCU 18:38 → 2NO 09-10 22:13
PROVIDERS: ADMIT Internal Medicine; ATTEND Internal Medicine
DX: A41.51 Sepsis due to Escherichia coli [E. coli] (principal); I50.33 Acute on chronic diastolic (congestive) heart failure; I21.A1 Myocardial infarction type 2; N17.9 Acute kidney failure, unspecified; J18.9 Pneumonia, unspecified organism; J91.8 Pleural effusion in other conditions classified elsewhere; E87.2 Acidosis; E44.0 Moderate protein-calorie malnutrition; D69.6 Thrombocytopenia, unspecified; I11.0 Hypertensive heart disease with heart failure; N39.0 Urinary tract infection, site not specified; N12 Tubulo-interstitial nephritis, not specified as acute or chronic; J98.11 Atelectasis; I47.1 Supraventricular tachycardia; I48.92 Unspecified atrial flutter; R65.20 Severe sepsis without septic shock; E11.9 Type 2 diabetes mellitus without complications; B96.20 Unspecified Escherichia coli [E. coli] as the cause of diseases classified elsewhere; D50.9 Iron deficiency anemia, unspecified; E78.5 Hyperlipidemia, unspecified; Z86.73 Personal history of transient ischemic attack (TIA), and cerebral infarction without residual deficits; Z68.22 Body mass index [BMI] 22.0-22.9, adult; N28.1 Cyst of kidney, acquired; Z79.01 Long term (current) use of anticoagulants; Z79.84 Long term (current) use of oral hypoglycemic drugs; Z79.82 Long term (current) use of aspirin; E86.0 Dehydration; I48.91 Unspecified atrial fibrillation
CPT/HCPCS: 36415; 36416; 71010; 71020; 76700; 80048; 80053; 80061; 81003; 81015; 82533; 82553; 82570; 83605; 83690; 83735; 83880; 84100; 84300; 84443; 84484; 85025; 85610; 85730; 87040; 87077; 87086; 87149; 87186; 93005; 93010; 93306; 94640; 96361; 96365; 96375; A4216; G8978-GP-CM; G8979-GP-CK; G8987-GO-CJ; G8988-GO-CI; J0153; J0282; J0360; J1160; J1650; J1940; J1956; J2185; J2543; J2920; J3370; J3475; J7050; J7620

== ENCOUNTER 2017-09-19 11:14 | Emergency (ER) | payer MEDICARE, OTHER | END 2017-09-19 12:48 | LOC: ERS 11:14 → EEVIPCON 11:14 → ERS 12:48 | DX: R04.0 Epistaxis (principal); E11.9 Type 2 diabetes mellitus without complications; E78.5 Hyperlipidemia, unspecified; I10 Essential (primary) hypertension; Z86.73 Personal history of transient ischemic attack (TIA), and cerebral infarction without residual deficits; Z79.84 Long term (current) use of oral hypoglycemic drugs; Z79.899 Other long term (current) drug therapy | CPT/HCPCS: 99284 ==

== ENCOUNTER 2017-09-25 19:36 | Inpatient (IN) | payer MEDICARE, OTHER ==
[2017-09-25 21:30] LABS: Prothrombin Time 16.4 SEC (12.0-14.7)
[2017-09-25 21:31] LABS: PTT 38.8 SEC (22.9-36.1)
[2017-09-25 21:35] LABS: Hematocrit 19.8 % (36.0-47.0); Mean Platelet Volume 10.5 fL (7.4-10.4); Red Blood Cell (RBC) Count 2.66 mill/uL (4.20-5.40); White Blood Cell (WBC) Count 9.2 thou/uL (4.8-10.8)
[2017-09-25 21:44] LABS: ALT (SGPT) 21 U/L (8-55); AST (SGOT) 20 U/L (5-34); Alkaline Phosphatase 51 U/L (40-150); Anion Gap 14 mmol/L (10-20); BUN (Urea Nitrogen) 56 mg/dL (9.8-20.1); Bilirubin, Total 0.4 mg/dL (0.2-1.2); Calc. Creatinine Clearance 0 mL/min (70-130); Calcium 8.3 mg/dL (7.8-10.44); Carbon Dioxide 22 mmol/L (23-31); Chloride 107 mmol/L (98-107); Estimated GFR-MDRD 18; Protein, Total 5.1 g/dL (6.0-8.3)
[2017-09-25 21:55] LABS: #Eosinphils 0.1 thou/uL (0.0-0.7); #Lymphocytes 1.2 thou/uL (1.20-3.40); #Monocytes 0.5 thou/uL (0.11-0.59); #Neutrophils 7.4 thou/uL (1.40-6.50); %Basophils 0.3 % (0.0-1.0); %Eosinophils 0.8 % (0.0-10.0); %Lymphocytes 12.6 % (21.0-51.0); %Monocytes 5.6 % (0.0-10.0); Band 1 % (5-11); Neutrophil 85 % (42-75)
[2017-09-25 21:59] LABS: Anisocytosis SLIGHT = 6-15 cells (100X) (0-5/hpf); Elliptocytes SLIGHT = 2-5 cells (100X) (0-1/hpf); Hypochromia SLIGHT = 6-15 cells (100X) (0-5/hpf); Schistocytes SLIGHT = 2-5 cells (100X) (0-1/hpf); Target Cells MODERATE= 6-15 cells (100X) (0-1/hpf)
[2017-09-25 22:00] LABS: Ovalocytes MODERATE= 6-15 cells (100X) (0-1/hpf)
[2017-09-26] MEDS ORDERED: Pantoprazole 40 MG VIAL ONE (04:20)
[2017-09-26 04:22] LABS: Hematocrit 29.7 % (36.0-47.0)
[2017-09-26 04:29] LABS: CK (CPK) 32 U/L (29-168); Lipase 45 U/L (8-78)
[2017-09-26 04:32] LABS: Troponin I 0.042 ng/mL (< 0.028)
[2017-09-26] MEDS ORDERED: Ondansetron ODT 4 MG TAB SL PRN (04:42)
[2017-09-26] MEDS ORDERED: Sodium Chloride 0.9% 1,000 ML IV SCH ×2 (04:42→07:45)
[2017-09-26] MEDS ORDERED: Ondansetron HCl/PF 4 MG/2 ML Vial IVP PRN ×2 (04:42→07:45)
[2017-09-26] MEDS ORDERED: HumaLOG 300 UNITS/3 ML VIAL SC PRN ×2 (07:45)
[2017-09-26] MEDS ORDERED: Acetaminophen 325 MG TAB PO PRN (07:45)
[2017-09-26] MEDS ORDERED: Ondansetron ODT 4 MG TAB PO PRN (07:45)
[2017-09-26] MEDS ORDERED: Dextrose 50% Abboject 50 ML SYRINGE SLOW IVP PRN (07:45)
[2017-09-26] MEDS ORDERED: Dextrose 5% in Water 1,000 ML IV PRN (07:45)
[2017-09-26] MEDS ORDERED: hydrALAZINE 20 MG/ML VIAL SLOW IVP PRN (07:45)
[2017-09-26] MEDS ORDERED: Ferrous Sulfate 325 MG TAB PO SCH (08:00)
--- NOTE | 2017-09-26 08:17 | RAD ---
PORTABLE CHEST 1 VIEW: Date: 09/26/17 Time: 0313 hours HISTORY: Dyspnea. FINDINGS/IMPRESSION: Comparison made with exam dated 09/12/17. There is a hazy density in the right mid and lower lung zones, and accompanying right effusion. No pn eumothorax seen. The heart is enlarged. The aorta is tortuous. POS: H
[2017-09-26] MEDS ORDERED: Famotidine 20 MG TAB PO SCH (09:00)
[2017-09-26] MEDS ORDERED: Potassium Chloride 20 MEQ TAB PO SCH (09:00)
[2017-09-26] MEDS ORDERED: Metoprolol Tartrate 50 MG TAB PO SCH (09:00)
[2017-09-26] MEDS ORDERED: Folic Acid 1 MG TAB PO SCH (09:00)
[2017-09-26] MEDS ORDERED: Cyanocobalamin (Vitamin B-12) 1,000 MCG TAB PO SCH (09:00)
[2017-09-26] MEDS ORDERED: Saccharomyces boulardii 250 MG CAP PO SCH (09:00)
[2017-09-26] MEDS ORDERED: Pantoprazole 40 MG VIAL IVP SCH (09:00)
[2017-09-26] MEDS ORDERED: Levothyroxine Sodium 50 MCG TAB PO SCH (10:00)
--- NOTE | 2017-09-26 11:43 | HP ---
PRIMARY CARE PHYSICIAN: Ariel Vasques M.D. CHIEF COMPLAINT: Low blood count. HISTORY OF PRESENT ILLNESS: Ms. Cuadra is a very pleasant 87-year-old female who was sent over from the rehab center due to a low hemoglobin count. She was recently hospitalized at [facility] at the beginning of this month and was admitted for atrial fibrillation with rapid ventricular response as w ell as pneumonia and E. coli bacteremia. Due to the atrial fibrillation, she was placed on Eliquis a nd after she had been treated for the above condition, she was sent to the inpatient rehabilitation c enter. There, apparently, she suffered a very severe nose bleed and due to the severe epistaxis, she was seen by Dr. Morfin who performed a nasal cauterization to stop the bleeding. She says while she was at the rehab, she began getting extremely weak, came to the point where she could not stand up a nd they checked a blood count and noticed that it was 6.3 where her hemoglobin was around 11 when she left the hospital to rehabilitation and she was sent over to our facility for further evaluation. I t is also noted in her lab work that her creatinine is elevated as well at least twice above baseline . When asked how she feels now she says she feels okay. She denies any chest pain or shortness of b reath, no abdominal pain, no nausea, no vomiting. However, it was reported at least in the ER record s that she was having some tarry stools. REVIEW OF SYSTEMS: CONSTITUTIONAL: No fevers, chills, no night sweats, no weight loss. HEENT: She denies any headaches, no dizziness, no visual changes, no sore throat, rhinorrhea, neck p ain, no adenopathy. PULMONARY: No hemoptysis, no cough, no wheezing. CARDIOVASCULAR: She denies any chest pain, no shortness of breath, no PND, no orthopnea. GASTROINTESTINAL: No abdominal pain, no nausea, no vomiting, no change in bowels. GENITOURINARY: No urinary frequency, hematuria, no hesitancy. NEUROLOGIC: No focal weakness, numbness, no seizures. PSYCHIATRIC: No symptoms of anxiety or depression. SKIN AND INTEGUMENT: No skin changes, no rash and also, the patient denies having any further bleedi ng from her nose after the cauterization procedure. PAST MEDICAL HISTORY: Significant for atrial fibrillation with rapid ventricular response, recent E. coli bacteremia and pneumonia, diabetes mellitus type 2, hypertension, hyperlipidemia, and cerebrova scular accident, history of recent acute renal failure. PAST SURGICAL HISTORY: She has had ear surgery on the right, ectopic surgery, and vein pro cedure. SOCIAL HISTORY: She drinks socially, vodka tonic daily. Denies any smoking or drug use. She lives with her daughter. FAMILY HISTORY: Significant for coronary artery disease. ALLERGIES: No known drug allergies. MEDICATIONS: She says she was not sure about her medicines, but says this is same as on discharge; h owever, she has been taken off Eliquis and her medications in our electronic system include aspirin 8 1 mg daily, vitamin B12 1000 mcg daily, Feosol 325 mg daily, folic acid 1 mg daily, Lasix 40 mg daily , Levaquin 500 mg daily, levothyroxine 50 mcg daily, magnesium oxide 400 mg daily, metformin 500 mg t wice daily, Lopressor 50 mg twice a day, K-Dur 20 mEq daily, Florastor 250 mg daily, simvastatin 20 m g at bedtime, valsartan 100 mg daily, and verapamil 240 mg daily. PHYSICAL EXAMINATION: GENERAL: She is alert and oriented. She appears to be in no acute distress. HEENT: Pupils are equal, round, and reactive. Extraocular muscles are intact. Her sclerae are anic teric. Throat: There is no erythema, no exudates. NECK: No adenopathy, no bruits. LUNGS: Clear. No wheezing, no rales. CARDIOVASCULAR: She has a normal S1, S2. No S3 or S4. No murmurs, clicks, or rubs. ABDOMEN: Soft, nontender, and nondistended. Positive for bowel sounds. There is no rebound, no gua rding. EXTREMITIES: She has trace edema. She has some scattered bruising. NEUROLOGICAL: The exam is nonfocal. LABORATORY AND X-RAY FINDINGS: Lab results on admission, white blood cell count 9.2, hemoglobin 6.3, hematocrit is 19.8, platelet count is 138. INR is 1.3. Sodium 138, potassium 5.2, chloride is 107, CO2 is 22, BUN of 56, creatinine 2.56, glucose is 100. ASSESSMENT AND PLAN: 1. This is an 87-year-old female that was sent from the rehabilitation due to a low hemoglobin. Leah s is likely as a result of acute blood loss from epistaxis. It appears as if the bleeding has been c ontrolled; however, she does have a significant symptomatic anemia. It appears as if she also has an acute renal failure with her creatinine being 2.56. This is likely due to the acute blood loss as w ell. She will be admitted to Oncology. She has already been given a unit of blood and her hemoglobi n has risen dramatically. We will continue to monitor her H&H over the next day or 2 to make sure th at this has stabilized. Eliquis will continue to be held. 2. Acute renal failure. Again, this is likely due to the blood loss. We will continue gentle IV hy dration and continue to monitor her creatinine. 3. Diabetes mellitus. We will need to reconcile her home medications and restart as appropriate. Radha etformin is on her list. This will need to be held due to the acute renal failure. We will place he r on a sliding scale insulin. 4. Hypertension. Her usual home medications can be restarted again with the exception of the angiot ensin receptor mary, Diovan; however, we will go ahead and start verapamil and place her on p.r.n. blood pressure medications. The Diovan will be restarted once her renal function has improved.
[2017-09-26 12:49] VITALS: BMI 23.6
[2017-09-26 12:52] VITALS: TEMP 98.3
[2017-09-26 14:09] VITALS: BP 165/70
--- NOTE | 2017-09-26 19:57 | DIS ---
PRIMARY CARE PHYSICIAN: Dr. Ariel Vasques. DATE OF ADMISSION: 09/26/2017 DATE OF DISCHARGE: 09/26/2017 DISCHARGE DISPOSITION: Back to inpatient rehabilitation. DISCHARGE DIAGNOSES: 1. Acute blood loss anemia secondary to epistaxis. 2. Epistaxis, resolved. 3. History of chronic atrial fibrillation. 4. Diabetes mellitus, type 2. 5. Hypertension. 6. Hyperlipidemia. 7. History of cerebrovascular accident. 8. Acute renal failure. DISCHARGE MEDICATIONS: Please note that valsartan as well as metformin and Lasix are on hold due to acute renal failure. These should be restarted at the discretion of the rehabilitation physician. E liquis is also on hold due to severe epistaxis with acute blood loss anemia. She is to continue vera pamil 240 mg daily, Zocor 20 mg daily, Florastor 250 mg daily, K-Dur 20 mEq daily, Lopressor 50 mg tw ice daily, magnesium oxide 400 mg daily, Synthroid 50 mcg daily, Levaquin 500 mg daily, Lasix 40 mg d aily, folic acid 1 mg daily, Feosol 325 mg daily, vitamin B12 of 1000 mcg daily and aspirin 81 mg a d ay. CODE STATUS: FULL CODE. ALLERGIES: No known drug allergies. HOSPITAL COURSE: Ms. Cuadra is a pleasant 87-year-old female who was transferred from the inpatient rehabilitation facility due to significantly low blood count as well as feeling generally weak. She was transferred in order to receive a blood transfusion. She had severe epistaxis which caused acut e blood loss anemia which was symptomatic. Hemostasis had been achieved by Dr. Morfin who had cauter ized the area; however, she had had significant enough blood loss to require blood transfusion and th is is the reason she was transferred from rehabilitation. Once she had undergone blood transfusion, she was able to be transferred back to the inpatient rehabilitation. She had such significant blood loss that she did develop acute renal failure. I spoke with the rehabilitation assistant and it is exp lained to me that the acute renal failure can be managed in inpatient rehabilitation, the same consul tants will be following her there. Due to the acute renal failure, valsartan, metformin, and Lasix a re on hold and these are to be restarted at the discretion of the inpatient rehabilitation physician and therefore she will be transferred back to inpatient rehabilitation today.
[2017-09-26] MEDS ORDERED: Atorvastatin Calcium 20 MG TAB PO SCH (21:00)
[2017-09-27] MEDS ORDERED: Levothyroxine Sodium 50 MCG TAB PO SCH (06:00)
== END 2017-09-26 18:15 | DRG 812 ==
LOC: ERS 19:36 → ONC 09-26 03:08
PROVIDERS: ADMIT Internal Medicine; ATTEND Internal Medicine
PROC: 30233N1 Transfusion of Nonautologous Red Blood Cells into Peripheral Vein, Percutaneous Approach (ICD-10-PCS; principal; 2017-09-26)
DX: D62 Acute posthemorrhagic anemia (principal); N17.9 Acute kidney failure, unspecified; I48.2 Chronic atrial fibrillation; E11.9 Type 2 diabetes mellitus without complications; I10 Essential (primary) hypertension; E78.5 Hyperlipidemia, unspecified; Z86.73 Personal history of transient ischemic attack (TIA), and cerebral infarction without residual deficits; Z79.84 Long term (current) use of oral hypoglycemic drugs; Z79.82 Long term (current) use of aspirin
CPT/HCPCS: 36415; 36416; 36430; 71010; 82274; 82553; 83690; 83880; 84484; 85014; 85018; 85610; 85730; 86850; 86900; 86901; 93005; C9113; G8978-GP-CJ; G8979-GP-CJ; G8980-GP-CJ; G8987-GO-CJ; G8988-GO-CI; P9016

== ENCOUNTER 2017-10-28 15:07 | Emergency (ER) | payer MEDICARE, OTHER ==
--- NOTE | 2017-10-28 16:24 | RAD ---
CHEST 1 VIEW: Date: 10/28/17 COMPARISON: 09/26/17, 09/12/17, and 09/08/17. HISTORY: Cough. Fever. FINDINGS: Cardiomegaly. Atherosclerosis of aorta. Upper normal pulmonary vessels. Mild right hilar fullness. Lindsay zy opacity in the right lung base. There is persistent elevation of right hemidiaphragm. Overall, peggy gs are hyperinflated. There is no pneumothorax. There is diffuse bone demineralization. IMPRESSION: Improved aeration of the right lung. Residual hazy opacities do remain. Right lower lobe atelectasis is suspected, given elevation of right hemidiaphragm. Given longstanding elevation of the right hemid iaphragm, when compared to the examination of 09/08/17, better interrogation with a chest CT is recom mended. CODE T. POS: [facility]
[2017-10-28 16:26] LABS: #Lymphocytes 1.6 thou/uL (1.20-3.40); #Monocytes 0.5 thou/uL (0.11-0.59); #Neutrophils 5.5 thou/uL (1.40-6.50); %Basophils 0.5 % (0.0-1.0); %Eosinophils 0.3 % (0.0-10.0); %Monocytes 6.2 % (0.0-10.0); Anisocytosis SLIGHT = 6-15 cells (100X) (0-5/hpf); Band 9 % (5-11); Elliptocytes SLIGHT = 2-5 cells (100X) (0-1/hpf); Hemoglobin 8.8 g/dL (12.0-16.0); Hypochromia MODERATE=16-30 cells (100X) (0-5/hpf); Lymphocytes 16 % (21-51); MDiff Complete? YES; Mean Corpuscular HGB CONC 30.4 g/dL (32.0-36.0); Mean Corpuscular Volume 75.5 fl (81.0-99.0); Mean Platelet Volume 7.1 fL (7.4-10.4); Microcytosis SLIGHT = 6-15 cells (100X) (0-5/hpf); Monocytes 4 % (0-10); Neutrophil 67 % (42-75); PLT Morphology Comment Appears Adequate; Platelet Count 182 thou/uL (130-400); RBC Distribution Width 13.8 % (11.5-14.5); Reactive Lymphocytes 4 % (0-10); Red Blood Cell (RBC) Count 3.83 mill/uL (4.20-5.40); Target Cells SLIGHT = 2-5 cells (100X) (0-1/hpf); White Blood Cell (WBC) Count 7.6 thou/uL (4.8-10.8)
[2017-10-28 16:31] LABS: Bilirubin Negative (Negative); Blood, Urine Negative (Negative); Clarity Slightly Cloudy (Clear); Glucose, Urine (Dipstick) Negative (Negative); Leukocyte Trace (Negative); Nitrite Negative (Negative); Protein, Urine (Dipstick) 30 mg/dL (Neg-Trace); Specific Gravity, Urine 1.015 (1.005-1.030); Urobilinogen 0.2 mg/dL (0.2-1.0); pH, Urine 7.5 (5.0-9.0)
[2017-10-28 16:33] LABS: ALT (SGPT) 20 U/L (8-55); AST (SGOT) 24 U/L (5-34); Albumin 3.7 g/dL (3.4-4.8); Alkaline Phosphatase 68 U/L (40-150); Anion Gap 15 mmol/L (10-20); BUN (Urea Nitrogen) 14 mg/dL (9.8-20.1); Bilirubin, Total 0.5 mg/dL (0.2-1.2); Calc. Creatinine Clearance 0 mL/min (70-130); Calcium 9.4 mg/dL (7.8-10.44); Carbon Dioxide 26 mmol/L (23-31); Chloride 105 mmol/L (98-107); Estimated GFR-MDRD 49; Globulin 2.7 g/dL (2.4-3.5); Glucose 116 mg/dL (83-110); Lipase 27 U/L (8-78); Potassium 4.5 mmol/L (3.5-5.1); Protein, Total 6.4 g/dL (6.0-8.3); Sodium 141 mmol/L (136-145)
[2017-10-28 16:42] LABS: Bacteria/HPF 1+ HPF (None Seen); RBC/HPF 0-3 HPF (0-3); Squamous Epithelial 0-3 HPF (0-3)
--- NOTE | 2017-10-28 18:26 | CT ---
CT CHEST WITHOUT CONTRAST: Date: 10-28-17 Provided Clinical History: Cough. FINDINGS: No comparisons. The heart, pericardium, and great vessels are suboptimally evaluated without IV contrast material. Th ere is conspicuous atherosclerotic vascular calcification noted, including coronary calcium. There is slightly greater than physiologic pericardial fluid present. Evaluation for thoracic lymph node enla rgement is limited given lack of IV contrast. A prominent in size pretracheal lymph node is noted jose suring up to 1.5 cm in short axis. The airway appears patent and of normal caliber. Evaluation of the lung parenchyma is limited due to patient respiratory motion. There is a moderate right pleural effusion with patchy areas of probable parenchymal opacity versus motion artifact involving the right lower lobe. Increased density involvi ng the parenchyma at the right lung base could reflect calcification or potentially aspirated contras t material if the patient has had a recent swallow study. There is no evidence for a left sided pleur al effusion. There is no evidence for pneumothorax. The visualized portions of the upper abdomen are suboptimally evaluated due to patient respiratory m otion and lack of IV contrast material. The osseous structures demonstrate no concerning osteoblastic or osteolytic lesions. IMPRESSION: 1. Moderate right pleural effusion with patchy foci of increased density involving the right lower lo be possibly reflecting infectious pneumonitis. Increased density involving a portion of the right low er lobe lung parenchyma reflects calcification or aspirated contrast (if the patient has had prior or al contrast). 2. Atherosclerosis. 3. Small pericardial effusion. 4. Nonspecific mildly enlarged pretracheal lymph node. POS: [facility]
== END 2017-10-28 18:15 | disposition home or self-care (01) ==
LOC: SCSER 15:07
DX: N39.0 Urinary tract infection, site not specified (principal); I25.10 Atherosclerotic heart disease of native coronary artery without angina pectoris; E11.9 Type 2 diabetes mellitus without complications; E78.5 Hyperlipidemia, unspecified; I10 Essential (primary) hypertension; I48.91 Unspecified atrial fibrillation; Z79.84 Long term (current) use of oral hypoglycemic drugs; Z79.899 Other long term (current) drug therapy
CPT/HCPCS: 36415; 71045; 71250; 80053; 81003; 81015; 83605; 83690; 85025; 96360

== ENCOUNTER 2018-09-24 08:12 | Inpatient (IN) | payer MEDICARE, OTHER ==
[2018-09-24 09:16] LABS: Bilirubin Negative (Negative); Blood, Urine Large (Negative); Clarity CLOUDY (Clear); Glucose, Urine (Dipstick) Negative (Negative); Leukocyte Large (Negative); Nitrite Positive (Negative); Protein, Urine (Dipstick) 100 mg/dL (Neg-Trace); Specific Gravity, Urine 1.022 (1.002-1.036); Urobilinogen 0.2 mg/dL (0.2-1.0); pH, Urine 5.5 (5.0-9.0)
[2018-09-24 09:17] LABS: #Basophils 0.1 thou/uL (0.0-0.2); #Eosinphils 0.1 thou/uL (0.0-0.7); #Lymphocytes 1.6 thou/uL (1.20-3.40); #Monocytes 0.5 thou/uL (0.11-0.59); #Neutrophils 5.2 thou/uL (1.40-6.50); %Basophils 1.1 % (0.0-1.0); %Eosinophils 1.1 % (0.0-10.0); %Monocytes 7.1 % (0.0-10.0); %Neutrophils 69.6 % (42.0-75.0); Hemoglobin 10.6 g/dL (12.0-16.0); Mean Corpuscular HGB CONC 30.9 g/dL (32.0-36.0); Mean Corpuscular Hemoglobin 21.7 pg (27.0-31.0); Mean Corpuscular Volume 70.3 fL (78.0-98.0); Mean Platelet Volume 7.2 fL (7.4-10.4); Platelet Count 155 thou/uL (130-400); RBC Distribution Width 14.9 % (11.5-14.5); Red Blood Cell (RBC) Count 4.87 mill/uL (4.20-5.40); White Blood Cell (WBC) Count 7.5 thou/uL (4.8-10.8)
[2018-09-24 09:23] LABS: Albumin 4.2 g/dL (3.4-4.8)
[2018-09-24 09:24] LABS: Chloride 104 mmol/L (98-107); Potassium 4.6 mmol/L (3.5-5.1); Sodium 136 mmol/L (136-145)
[2018-09-24 09:25] LABS: Calcium 9.2 mg/dL (7.8-10.44); Glucose 107 mg/dL (83-110)
[2018-09-24 09:26] LABS: Globulin 2.1 g/dL (2.4-3.5); Protein, Total 6.3 g/dL (6.0-8.3)
[2018-09-24 09:27] LABS: Anion Gap 17 mmol/L (10-20); Bilirubin, Total 0.9 mg/dL (0.2-1.2); Carbon Dioxide 20 mmol/L (23-31)
[2018-09-24 09:27] LABS: Bacteria/HPF 4+ HPF (None Seen); Hyaline Casts/LPF 0-3 HYALINE CAST LPF (0-3 Hyaline); Pathc Cast-AUWi Flag 0.87 (0-2.49); RBC/HPF GREATER THAN 50-TNTC HPF (0-3)
[2018-09-24 09:28] LABS: Alkaline Phosphatase 97 U/L (40-150); CKMB 2.9 ng/mL (0-6.6)
[2018-09-24 09:29] LABS: Calc. Creatinine Clearance 0 mL/min (70-130); Estimated GFR-MDRD 37
[2018-09-24 09:30] LABS: BUN (Urea Nitrogen) 30 mg/dL (9.8-20.1)
[2018-09-24 09:31] LABS: ALT (SGPT) 54 U/L (8-55); AST (SGOT) 60 U/L (5-34); CK (CPK) 100 U/L (29-168)
[2018-09-24 09:39] LABS: Hypochromia SLIGHT = 6-15 cells (100X) (0-5/hpf); MDiff Complete? YES; Microcytosis MODERATE=15-30 cells (100X) (0-5/hpf); PLT Morphology Comment Appears Adequate; Polychromasia SLIGHT = 2-3 cells (100X) (0-2/hpf); Target Cells SLIGHT = 2-5 cells (100X) (0-1/hpf)
[2018-09-24] MEDS ORDERED: Valsartan 80 MG TAB PO SCH (10:00)
[2018-09-24] MEDS ORDERED: cefTRIAXone\\ROCEPHIN 1 GM VIAL ONE (10:33)
[2018-09-24] MEDS ORDERED: Metoprolol Tartrate 50 MG TAB ONE (10:33)
--- NOTE | 2018-09-24 10:40 | RAD ---
PORTABLE UPRIGHT FRONTAL CHEST RADIOGRAPH: 09/24/2018 HISTORY: Weakness. Trouble walking. Short of breath. COMPARISON: 10/28/2017 FINDINGS: No pneumothorax. There is pulmonary vascular congestion with perihilar interstitial prominence, incr eased when compared to 10/28/2017. There is new hazy density in the right infrahilar region with new blunting of the right costophrenic angle and new obscuration of the right hemidiaphragm, suggesting interval development of right basila r volume loss, infiltrate, and/or pleural fluid. IMPRESSION: New increased density in the right lung base may signify infectious pneumonitis or sequela of pulmona ry edema. Short-term follow-up imaging of the chest, following treatment, advised. POS: [facility]
[2018-09-24 12:07] LABS: Troponin I 0.066 ng/mL (< 0.028)
[2018-09-24] MEDS ORDERED: Acetaminophen 325 MG TAB PO PRN (13:29)
[2018-09-24] MEDS ORDERED: Senokot S 8.6-50 MG TAB PO PRN (13:29)
[2018-09-24] MEDS ORDERED: Nitroglycerin 0.4 MG TAB (25 Tab Bottle) SL PRN (13:39)
[2018-09-24] MEDS ORDERED: Furosemide 40 MG/4 ML VIAL SLOW IVP SCH (13:45)
--- NOTE | 2018-09-24 14:55 | HP ---
PRIMARY CARE PHYSICIAN: Ariel Vasques MD CHIEF COMPLAINT: Chest pain and shortness of breath. HISTORY OF PRESENT ILLNESS: Ms. Cuadra is a very pleasant 88-year-old female, who reported to the emergency room this morning for evaluation of shortness of breath, chest pain, and weakness. The patient reports that she has generalized weakness that is progressive over the last several days. The patient also reports a rapid heartbeat this a.m. She does have a history of atrial fib in the past. She denies any fever, chills, or cough. She does report urinary frequency. Denies dysuria. She also reports some swelling to her bilateral lower extremities, which is new for her. PAST MEDICAL HISTORY: Includes atrial fib. She has had an [place] in the past, COPD, pleural effusions. She also does have a history of type 2 diabetes, hyperlipidemia, hypertension, and in the past, had history of hemorrhagic ischemic CVA. Based on the patient's history and presentation, the patient was admitted to observation for further evaluation of her chest pain, shortness of breath, and weakness. PAST SURGERY HISTORY: As above. PAST SURGICAL HISTORY: Includes right ear drum surgery, atopic , vein procedure on bilateral legs. Reports that she has had her nose cauterized for excessive bleeding. PSYCH HISTORY: None. SOCIAL HISTORY: The patient reports that she drinks every day. Reports 1 to 2 vodka tonics per day. Denies any drug use. Denies any smoking history. FAMILY HISTORY: Unable to obtain. REVIEW OF SYSTEMS: The patient reports generalized weakness. Reports lower leg edema. Reports some palpitations this morning. Reports some shortness of breath. Reports increased urinary frequency. Denies dysuria. All other systems are reviewed and are negative unless mentioned in the HPI. PHYSICAL EXAMINATION: VITAL SIGNS: Blood pressure 150/64, pulse is 77, respirations 21, temperature is 98.9, pulse ox is 98% on room air. CONSTITUTIONAL: The patient is alert, oriented to person, place, and time. Appears nontoxic, in no apparent distress. HEENT: Head is atraumatic, normocephalic. Eyes, eyelids are normal to inspection. Pupils are equally round and reactive to light. Extraocular muscles are intact. ENT, mouth exam is normal. Mucous membranes are moist. NECK: Normal range of motion. Trachea is midline. RESPIRATORY/CHEST: Breath sounds are clear. No wheezing. No rales. Chest movement is symmetrical. CARDIOVASCULAR: Regular rate and rhythm. Does have a systolic murmur, grade 4/6. ABDOMEN: Female, bowel sounds are heard. Abdomen is nontender. BACK: Normal to inspection. Normal range of motion. No CVA tenderness. EXTREMITIES: Upper extremities has normal inspection, normal range of motion. Sensation is intact. Pulses are equal bilaterally. Lower extremities, normal inspection, normal range of motion. Pulses are equal bilaterally. Edema present, +2 bilaterally. NEUROLOGIC: The patient is oriented to person, place, and time. Speech is normal. No focal motor or sensory deficits. SKIN: Warm, dry, and normal in color. PSYCH: The patient has a normal affect. She is oriented to person, place, and time. ALLERGIES: NO KNOWN DRUG ALLERGIES. CURRENT MEDICATIONS: Per the ER. The patient is unable to tell me what she takes at home, has asked for us to have her daughter bring her home medications. Per ER, it is listed as, 1. Metformin 500 mg p.o. b.i.d. 2. Metoprolol 25 mg b.i.d. 3. Levothyroxine 88 mcg p.o. q.a.m. 4. Pravastatin 40 mg p.o. once a day. 5. Valsartan 160 mg p.o. once a day. LABORATORY/IMAGING DATA: White blood cell count is 7.5, hemoglobin is 10.6, hematocrit is 34.2, platelet count is 155. CK is 100, sodium is 136, potassium is 4.6, chloride is 104, carbon dioxide is 20, gap is 17, BUN is 30, creatinine is 1.35, estimated GFR is 37, glucose is 107, globulin is 2.1. AST is 60. First troponin in the indeterminate range of 0.049, CK-MB is 2.9. Second troponin in the indeterminate range of 0.066. BNP 1363. The patient had a chest x-ray, which showed new increased density in the right lung base, which may signify infectious pneumonitis or sequela of pulmonary edema. Short-term followup imaging is recommended. EKG in the ER shows a normal sinus rhythm, beats per minute is 78, no ectopics. [place] is normal. Possible anterior infarct, age indeterminate. [place] is normal. ASSESSMENT AND PLAN: 1. Chest pain with troponins in the indeterminate range, which might be demand ischemia. However, we will obtain an echocardiogram and a stress test. We will also restart her Lasix 40 mg. We will trend out troponins. We will consult Cardiology as needed. 2. Hypertension. We will continue her home medications. We will monitor her blood pressure. 3. Hyperlipidemia. We will continue her home medications. 4. Diabetes. We will continue her home medication. 5. Gastrointestinal and deep venous thrombosis prophylaxis will be started. 6. Hospital course will be dependent on clinical findings. Job ID: [id number]
[2018-09-24 15:17] LABS: Troponin I 0.063 ng/mL (< 0.028)
[2018-09-24 16:07] VITALS: BMI 21.6
--- NOTE | 2018-09-24 18:46 | CT ---
CT BRAIN 09/24/18 PROVIDED CLINICAL HISTORY: Facial droop. FINDINGS: Comparison is made with the study dated 02/08/17. The ventricular system appears normal in size and morphology. There is no evidence for intracranial h emorrhage or mass effect. Encephalomalacia involving the left occipital lobe medially is noted compat ible with prior infarction. Postoperative changes involving the right mastoid is redemonstrated. The extracranial soft tissues and osseous structures appear otherwise unremarkable. IMPRESSION: No evidence for intracranial hemorrhage or mass effect. POS: [facility]
[2018-09-24] MEDS: Pravastatin Sodium 40 MG TAB PO SCH (21:13)
[2018-09-24] MEDS: Famotidine 20 MG TAB PO SCH (21:13)
[2018-09-24] MEDS: Metoprolol Tartrate 50 MG TAB PO SCH (21:13)
[2018-09-25] MEDS: Levothyroxine Sodium 88 MCG TAB PO SCH (06:00)
[2018-09-25 06:24] LABS: #Basophils 0.1 thou/uL (0.0-0.2); #Eosinphils 0.1 thou/uL (0.0-0.7); #Lymphocytes 1.9 thou/uL (1.20-3.40); #Monocytes 0.7 thou/uL (0.11-0.59); #Neutrophils 4.9 thou/uL (1.40-6.50); %Basophils 1.1 % (0.0-1.0); %Eosinophils 1.6 % (0.0-10.0); %Lymphocytes 24.5 % (21.0-51.0); %Monocytes 8.7 % (0.0-10.0); %Neutrophils 64.1 % (42.0-75.0); Hemoglobin 10.5 g/dL (12.0-16.0); Mean Corpuscular HGB CONC 32.1 g/dL (32.0-36.0); Mean Corpuscular Hemoglobin 22.5 pg (27.0-31.0); Mean Corpuscular Volume 70.1 fL (78.0-98.0); Mean Platelet Volume 11.5 fL (7.4-10.4); Platelet Count 151 thou/uL (130-400); RBC Distribution Width 14.7 % (11.5-14.5); Red Blood Cell (RBC) Count 4.66 mill/uL (4.20-5.40); White Blood Cell (WBC) Count 7.6 thou/uL (4.8-10.8)
[2018-09-25 06:45] LABS: ALT (SGPT) 50 U/L (8-55); AST (SGOT) 53 U/L (5-34); Albumin 3.6 g/dL (3.4-4.8); Alkaline Phosphatase 88 U/L (40-150); Anion Gap 17 mmol/L (10-20); BUN (Urea Nitrogen) 36 mg/dL (9.8-20.1); Bilirubin, Total 0.6 mg/dL (0.2-1.2); Calc. Creatinine Clearance 20 mL/min (70-130); Calcium 8.7 mg/dL (7.8-10.44); Carbon Dioxide 20 mmol/L (23-31); Cardiac Risk 2.2 (Less than 4.5); Chloride 104 mmol/L (98-107); Cholesterol 128 mg/dl (< 200 Desired); Estimated GFR-MDRD 33; Globulin 2.2 g/dL (2.4-3.5); Glucose 108 mg/dL (83-110); HDL Cholesterol 58 mg/dL (>60 Neg Risk); LDL Cholesterol, Calculated 53 mg/dL; Potassium 4.1 mmol/L (3.5-5.1); Protein, Total 5.8 g/dL (6.0-8.3); Sodium 137 mmol/L (136-145); Triglycerides 85 mg/dL (Less than 150)
[2018-09-25] MEDS ORDERED: metFORMIN 500 MG TAB PO SCH (08:00)
[2018-09-25] MEDS: Sodium Chloride 0.9% 1,000 ML IV SCH (08:12)
[2018-09-25] MEDS: cefTRIAXone\\ROCEPHIN 1 GM in Sodium Chloride 0.9% 100 ML IVPB SCH (08:12)
[2018-09-25] MEDS: Famotidine 20 MG TAB PO SCH ×2 (08:12→20:31)
[2018-09-25] MEDS: Metoprolol Tartrate 50 MG TAB PO SCH ×3 (08:12→20:31)
[2018-09-25] MEDS: Multivitamin W/ Minerals 1 TAB PO SCH (08:13)
[2018-09-25] MEDS ORDERED: Furosemide 40 MG TAB PO SCH (09:00)
[2018-09-25] MEDS ORDERED: Valsartan 80 MG TAB PO SCH (09:00)
--- NOTE | 2018-09-25 11:54 | ULT ---
BILATERAL CAROTID DUPLEX ULTRASOUND: DATE: 09/25/18 HISTORY: Left-sided facial droop. TECHNIQUE: Lilly scale ultrasound with color flow and spectral Doppler imaging of the extracranial carotid artery systems performed bilaterally. FINDINGS: There is plaque formation on either side. The peak systolic velocity in the right ICA measures 42 cm/second with an end-diastolic velocity of 1 3 cm/second and a systolic ratio of 0.85. The peak systolic velocity in the left ICA measures 57 cm/second with an end-diastolic velocity of 14 cm/second and a systolic ratio of 0.99. Flow in both vertebral arteries remains antegrade. IMPRESSION: No evidence of hemodynamically significant stenosis. POS: [facility]
--- NOTE | 2018-09-25 13:57 | NM ---
CARDIAC SPECT: CLINICAL HISTORY: 88-year-old female with chest pain, coronary artery disease, atrial fibrillation, COPD, CVA, diabetes , and dyslipidemia. TECHNIQUE: A myocardial perfusion scan was performed using the single isotope one day protocol with technetium-9 9m sestamibi. 9 mCi were injected intravenously for the rest exam followed by 29 mCi for the stress e xam. Pharmacologic stress with Adenosine was monitored and interpreted by Faye Henriquez. FINDINGS: Homogeneous tracer distribution is seen in the myocardial segments on stress and rest images without fixed or reversible defects. GATED SPECT LVEF: 78%. WALL MOTION EXAM: Normal. IMPRESSION: Normal myocardial perfusion scan. POS: [facility]
[2018-09-25] MEDS ORDERED: ADENOSINE 60 MG/20 ML VIAL ONE (15:09)
--- NOTE | 2018-09-25 15:40 | RAD ---
RADIOGRAPH CHEST 2 VIEWS: Date: 09/25/18 Time: 2:00 p.m. HISTORY: 88-year-old female with dyspnea. COMPARISON: One view study of 09/24/18. FINDINGS: Again demonstrated is the dense opacification of the right lower lung zone, apparently by a combinati on of right pleural effusion, and consolidation of the right middle lobe and portions of the right lo wer lobe. The consolidation could be due to pneumonia or atelectasis, or both. There is mild irregula rity of the left hemidiaphragm. There is questionable tiny left pleural effusion. There is cardiomega ly. There is pulmonary venous engorgement. No pneumothorax. No significant interval change on the fro ntal projection. IMPRESSION: 1. Right pleural effusion and underlying atelectasis and/or pneumonia of the right middle lobe a nd right lower lobe. 2. Cardiomegaly. 3. No interval change since yesterday. [place] [] POS: [facility]
[2018-09-25] MEDS: Pravastatin Sodium 40 MG TAB PO SCH (20:30)
[2018-09-26] MEDS: Levothyroxine Sodium 88 MCG TAB PO SCH (03:03)
[2018-09-26 06:12] LABS: #Basophils 0.1 thou/uL (0.0-0.2); #Eosinphils 0.2 thou/uL (0.0-0.7); #Lymphocytes 1.7 thou/uL (1.20-3.40); #Monocytes 0.6 thou/uL (0.11-0.59); #Neutrophils 4.3 thou/uL (1.40-6.50); %Basophils 1.2 % (0.0-1.0); %Eosinophils 3.3 % (0.0-10.0); %Lymphocytes 24.5 % (21.0-51.0); %Monocytes 8.5 % (0.0-10.0); %Neutrophils 62.5 % (42.0-75.0); Hemoglobin 10.8 g/dL (12.0-16.0); Mean Corpuscular HGB CONC 31.7 g/dL (32.0-36.0); Mean Corpuscular Hemoglobin 22.4 pg (27.0-31.0); Mean Corpuscular Volume 70.7 fL (78.0-98.0); Mean Platelet Volume 11.3 fL (7.4-10.4); Platelet Count 156 thou/uL (130-400); RBC Distribution Width 15.1 % (11.5-14.5); Red Blood Cell (RBC) Count 4.81 mill/uL (4.20-5.40); White Blood Cell (WBC) Count 6.8 thou/uL (4.8-10.8)
[2018-09-26 06:32] LABS: ALT (SGPT) 51 U/L (8-55); AST (SGOT) 46 U/L (5-34); Albumin 3.7 g/dL (3.4-4.8); Alkaline Phosphatase 83 U/L (40-150); Anion Gap 13 mmol/L (10-20); BUN (Urea Nitrogen) 30 mg/dL (9.8-20.1); Bilirubin, Total 0.5 mg/dL (0.2-1.2); Calc. Creatinine Clearance 22 mL/min (70-130); Calcium 8.6 mg/dL (7.8-10.44); Carbon Dioxide 25 mmol/L (23-31); Chloride 106 mmol/L (98-107); Estimated GFR-MDRD 36; Globulin 2.2 g/dL (2.4-3.5); Glucose 133 mg/dL (83-110); Potassium 3.6 mmol/L (3.5-5.1); Protein, Total 5.9 g/dL (6.0-8.3); Sodium 140 mmol/L (136-145)
[2018-09-26] MEDS: Sodium Chloride 0.9% 1,000 ML IV SCH (06:44)
[2018-09-26] MEDS: cefTRIAXone\\ROCEPHIN 1 GM in Sodium Chloride 0.9% 100 ML IVPB SCH (07:13)
[2018-09-26] MEDS: Multivitamin W/ Minerals 1 TAB PO SCH (08:02)
[2018-09-26] MEDS: Famotidine 20 MG TAB PO SCH ×2 (08:02→20:42)
[2018-09-26] MEDS: Metoprolol Tartrate 50 MG TAB PO SCH ×2 (08:03→20:42)
--- NOTE | 2018-09-26 08:36 | ULT ---
ULTRASOUND WITH DOPPLER DUPLEX VENOUS LOWER EXTREMITIES BILATERAL: 09/26/2018 HISTORY: An 88-year-old female with bilateral lower extremity edema. TECHNIQUE: Color flow Doppler, spectral waveform analysis of pulsed Doppler, and tobin-scale imaging with ladonna marylin and augmentation were used to evaluate the bilateral common femoral, femoral, popliteal, posteri or tibial, and superficial femoral veins, and the proximal portions of the profunda femoral and great er saphenous veins. FINDINGS: There is normal compressibility, demonstration of blood flow by color Doppler and pulsed Doppler, and response to augmentation, in all interrogated veins. There is increased transmission of cardiac pul sations. IMPRESSION: 1. No deep vein thrombosis in the bilateral lower extremities. 2. Increased pulsatility of the waveforms is evidence for congestive heart failure. arabella[] POS: [facility]
[2018-09-26] MEDS ORDERED: Enoxaparin Sodium 40 MG/0.4 ML SYRINGE SC SCH (09:00)
[2018-09-26] MEDS: Enoxaparin Sodium 60 MG/0.6 ML SYRINGE SC SCH (09:13)
--- NOTE | 2018-09-26 10:06 | CON ---
DATE OF CONSULTATION: 09/25/2018 REASON FOR CONSULTATION: Shortness of breath. HISTORY OF PRESENT ILLNESS: Ms. Cuadra is a very pleasant 88-year-old, whom I have seen and evaluated in the past. She recently presented with increased shortness of breath and a near-syncopal episode. This occurred after a long plane ride from [place] to [place]. Once she arrived in the airport, she became weak, fatigue, and nearly had a syncopal episode. She was brought [facility] shortly thereafter. She denies chest pain, pressure. She does have risk factors for underlying coronary artery disease including hypertension and diabetes mellitus. PAST MEDICAL HISTORY: Atrial fibrillation, CVA, COPD, previous NH, hypertension, hemorrhagic CVA, RFA of the lower extremities. FAMILY HISTORY: Negative. SOCIAL HISTORY: No current tobacco use. Positive alcohol use. REVIEW OF SYSTEMS: A 10-point review of systems is reviewed and as above, negative. PHYSICAL EXAMINATION: VITAL SIGNS: Blood pressure 176/81, pulse 74, and temperature afebrile. GENERAL: Patient is a pleasant, who is in no acute distress. The patient appears their stated age. NEUROLOGIC: The patient is alert and oriented x3 with no focal neurologic deficits. HEENT: Sclerae without icterus. Mouth has moist mucous membranes with normal pallor. NECK: No JVD. Carotid upstroke brisk. No bruits bilaterally. LUNGS: Clear to auscultation with unlabored respirations. BACK: No scoliosis or kyphosis. CARDIAC: Regular rate and rhythm with normal S1 and S2. No S3 or S4 noted. No significant rubs, murmurs, thrills, or gallops noted throughout the precordium. PMI is not displaced. There is no parasternal heave. ABDOMEN: Soft, nontender, nondistended. No peritoneal signs present. No hepatosplenomegaly. No abnormal striae. EXTREMITIES: 2+ femoral and 2+ dorsalis pedis pulses. No cyanosis, clubbing, or edema. SKIN: No gross abnormalities. LABORATORY DATA: Hemoglobin 10.8, hematocrit 34.0, and platelet count 156. Creatinine 1.50 with a GFR of 33. BNP of 1362. Troponin is 0.063. Echo-doppler shows a normal LVEF. Right ventricle appears hypokinetic. There is mild concentric LVH. EKG shows normal sinus rhythm and nonspecific T-wave changes. IMPRESSION: Shortness of breath. RECOMMENDATIONS: Etiology currently unknown. Her recent stress study was negative for ischemia. Her echo also showed a normal LVEF. She does have a severe pulmonary hypertension in addition to hypokinetic right ventricle. Differential diagnosis include acute PE on chronic pulmonary hypertension. Pulmonary hypertension appears to be markedly elevated for a true acute process. Acute PE does not increase pulmonary pressures in the 80s. This is unlikely to be due to underlying coronary artery disease. I recommend a lower extremity duplex in addition to a V/Q scan. I did discuss this with Maddi Menon, [employer]. Overall, Ms. Cuadra does feel better. If her lower extremity duplex and V/Q scan are negative, we would recommend close monitoring and likely will need a sleep study. Job ID: [id number]
--- NOTE | 2018-09-26 13:08 | PDOC.PN ---
- Subjective Encounter Start Date: 09/26/18 Encounter Start Time: 11:00 Subjective: Patient examined, resting in bed, no acute distress -: c/o of HAMILTON when walking in the [place] today - Objective Vital Signs & Weight: Vital Signs (12 hours) Temp Pulse Resp BP Pulse Ox 09/26/18 11:42 97.7 F 62 20 144/82 H 97 09/26/18 08:16 96.1 F L 84 20 157/86 H 95 09/26/18 03:02 97.6 F 65 16 179/46 H 97 Weight Weight 48.534 kg I&O: 09/25/18 09/26/18 09/27/18 06:59 06:59 06:59 Intake Total 840 1839 Output Total 1325 1225 Balance -485 614 Result Diagrams: 09/26/18 05:22 09/26/18 05:22 Phys Exam - Physical Examination HEENT: PERRLA, moist MMs Neck: no nodes, no JVD Respiratory: no wheezing, no rales Cardiovascular: RRR Gastrointestinal: soft, non-tender Musculoskeletal: no edema, pulses present Neurological: non-focal, normal sensation Lymphatic: no nodes Psychiatric: normal affect Dx/Plan (1) HAMILTON (dyspnea on exertion) Code(s): R06.09 - OTHER FORMS OF DYSPNEA Status: Acute (2) H/O: CVA (cerebrovascular accident) Code(s): Z86.73 - PRSNL HX OF TIA (TIA), AND CEREB INFRC W/O RESID DEFICITS Status: Acute (3) Chest pain Code(s): R07.9 - CHEST PAIN, UNSPECIFIED Status: Acute (4) Edema, peripheral Code(s): R60.9 - EDEMA, UNSPECIFIED Status: Acute - Plan -: Patient needs a VQ scan to rule out a PE, GFR less than 35, -: Will get one tomorrow, 48 hr wait from stress test -: We will diurese and continue to monitor VS/labs -: Appreciate Dr. Rome's recommendations * .
--- NOTE | 2018-09-26 13:51 | PDOC.CTH ---
Cardiology Progress Note - Subjective Doing well. No complaints - Objective Vital Signs Temp Pulse Resp BP Pulse Ox 09/26/18 11:42 97.7 F 62 20 144/82 H 97 09/26/18 08:16 96.1 F L 84 20 157/86 H 95 09/26/18 03:02 97.6 F 65 16 179/46 H 97 Weight 107 lb 09/25/18 09/26/18 09/27/18 06:59 06:59 06:59 Intake Total 840 1839 Output Total 1325 1225 Balance -485 614 - Physical Examination General/Neuro: alert & oriented x3, NAD Neck: carotid US brisk, no JVD present Lungs: CTA, unlabored respirations Heart: PMI normal, RRR Abdomen: NT/ND, soft Extremities: + femoral B - Telemetry Telemetry Rhythm: sr - Labs Result Diagrams: 09/26/18 05:22 09/26/18 05:22 Troponin/CKMB CK-MB (CK-2) 2.9 ng/mL (0-6.6) 09/24/18 08:34 Troponin I 0.063 ng/mL (< 0.028) H 09/24/18 14:38 - Assessment/Plan SOB Near syncope AbnromalEcho Pt cannot have a VQ scan today secondary to receent cardiac nuclear study Scheduled for tomorrow If (+) will need senior living ACT If (-), recommend OP pulmonary consult and sleep study
[2018-09-26] MEDS: Pravastatin Sodium 40 MG TAB PO SCH (20:42)
[2018-09-27] MEDS: Sodium Chloride 0.9% 1,000 ML IV SCH (04:06)
[2018-09-27 05:51] LABS: ALT (SGPT) 47 U/L (8-55); AST (SGOT) 43 U/L (5-34); Albumin 3.6 g/dL (3.4-4.8); Alkaline Phosphatase 86 U/L (40-150); Anion Gap 15 mmol/L (10-20); BUN (Urea Nitrogen) 27 mg/dL (9.8-20.1); Bilirubin, Total 0.5 mg/dL (0.2-1.2); Calc. Creatinine Clearance 25 mL/min (70-130); Calcium 8.4 mg/dL (7.8-10.44); Carbon Dioxide 17 mmol/L (23-31); Chloride 110 mmol/L (98-107); Estimated GFR-MDRD 42; Globulin 2.3 g/dL (2.4-3.5); Glucose 180 mg/dL (83-110); Potassium 3.6 mmol/L (3.5-5.1); Protein, Total 5.9 g/dL (6.0-8.3); Sodium 138 mmol/L (136-145)
[2018-09-27] MEDS: Levothyroxine Sodium 88 MCG TAB PO SCH (06:01)
[2018-09-27 07:17] LABS: #Basophils 0.1 thou/uL (0.0-0.2); #Eosinphils 0.2 thou/uL (0.0-0.7); #Lymphocytes 2.2 thou/uL (1.20-3.40); #Monocytes 0.7 thou/uL (0.11-0.59); #Neutrophils 4.6 thou/uL (1.40-6.50); %Basophils 0.8 % (0.0-1.0); %Eosinophils 2.7 % (0.0-10.0); %Lymphocytes 27.9 % (21.0-51.0); %Monocytes 9.3 % (0.0-10.0); %Neutrophils 59.4 % (42.0-75.0); Elliptocytes SLIGHT = 2-5 cells (100X) (0-1/hpf); Hemoglobin 10.4 g/dL (12.0-16.0); Hypochromia SLIGHT = 6-15 cells (100X) (0-5/hpf); MDiff Complete? YES; Mean Corpuscular Hemoglobin 21.5 pg (27.0-31.0); Mean Corpuscular Volume 71.6 fL (78.0-98.0); Mean Platelet Volume 11.5 fL (7.4-10.4); Microcytosis SLIGHT = 6-15 cells (100X) (0-5/hpf); Platelet Count 160 thou/uL (130-400); RBC Distribution Width 15.5 % (11.5-14.5); Red Blood Cell (RBC) Count 4.85 mill/uL (4.20-5.40); White Blood Cell (WBC) Count 7.8 thou/uL (4.8-10.8)
[2018-09-27] MEDS ORDERED: Dextrose 5% in Water 1,000 ML IV PRN (08:49)
[2018-09-27] MEDS ORDERED: HumaLOG 300 UNITS/3 ML VIAL SC PRN (08:49)
[2018-09-27] MEDS ORDERED: Dextrose 50% Abboject 50 ML SYRINGE SLOW IVP PRN (08:49)
[2018-09-27] MEDS: Metoprolol Tartrate 50 MG TAB PO SCH ×2 (10:24→21:41)
[2018-09-27] MEDS: Multivitamin W/ Minerals 1 TAB PO SCH (10:24)
[2018-09-27] MEDS: Enoxaparin Sodium 60 MG/0.6 ML SYRINGE SC SCH (10:25)
[2018-09-27] MEDS: Famotidine 20 MG TAB PO SCH ×2 (10:25→21:41)
[2018-09-27] MEDS: cefTRIAXone\\ROCEPHIN 1 GM in Sodium Chloride 0.9% 100 ML IVPB SCH (10:26)
--- NOTE | 2018-09-27 11:04 | NM ---
VQ SCAN: DATE: 09/27/18 HISTORY: Chest pain. Dyspnea on exertion. TECHNIQUE: A ventilation perfusion scan was performed using 6 mCi Xenon-133 by inhalation for the ventilation st udy followed the intravenous administration of 6 mCi technetium-99m MAA for the perfusion scan. FINDINGS: Correlation with made with CXR from same date. There is a small, wedge-shaped segmental perfusion defect in the lateral basal segment of the left lo wer lobe. This maybe mismatched. IMPRESSION: Low-intermediate probability for pulmonary embolism. POS: [facility]
--- NOTE | 2018-09-27 11:07 | RAD ---
PA AND LATERAL VIEWS CHEST: Date: 09/27/18 HISTORY: Chest pain, dyspnea on exertion. FINDINGS: Comparison made with exam of 09/25/18. The heart size is enlarged. The aorta is tortuous. There is mild pulmonary vascular congestion. There is a right pleural effusion with adjacent consolidation/atelectatic change. No pneumothoraces are se en. POS: [facility]
--- NOTE | 2018-09-27 11:44 | PDOC.PN ---
- Subjective Encounter Start Date: 09/27/18 Encounter Start Time: 10:00 Subjective: Patient still c/o HAMILTON, urinary symptoms have improved -: States she was feeling better today until she got up to walk -: After her walk with PT, feeling SOB, incr work of breathing, SATs 94-95-RA - Objective Patient is a full code, daughter Le is her surrogate decision maker Vital Signs & Weight: Vital Signs (12 hours) Temp Pulse Resp BP Pulse Ox 09/27/18 07:21 97.9 F 76 20 176/104 H 100 09/27/18 04:08 97.5 F L 76 14 174/69 H 99 Weight Weight 49.169 kg I&O: 09/26/18 09/27/18 09/28/18 06:59 06:59 06:59 Intake Total 1839 2210 Output Total 1225 Balance 614 2210 Result Diagrams: 09/27/18 05:08 09/27/18 05:08 Additional Labs: Accuchecks 09/27/18 10:52 POC Glucose 135 H Radiology Reviewed by me: Yes Phys Exam - Physical Examination Constitutional: NAD HEENT: PERRLA, moist MMs Neck: no nodes, no JVD Respiratory: no wheezing, no rhonchi, clear to auscultation bilateral Cardiovascular: RRR Patient had a 12 second run of V tach last night Gastrointestinal: soft, non-tender Musculoskeletal: no edema, pulses present Neurological: non-focal, normal sensation Lymphatic: no nodes Psychiatric: normal affect, A&O x 3 Skin: no rash, cap refill <2 seconds Dx/Plan (1) HAMILTON (dyspnea on exertion) Code(s): R06.09 - OTHER FORMS OF DYSPNEA Status: Acute (2) H/O: CVA (cerebrovascular accident) Code(s): Z86.73 - PRSNL HX OF TIA (TIA), AND CEREB INFRC W/O RESID DEFICITS Status: Acute (3) Chest pain Code(s): R07.9 - CHEST PAIN, UNSPECIFIED Status: Acute (4) Edema, peripheral Code(s): R60.9 - EDEMA, UNSPECIFIED Status: Acute (5) Acute right-sided CHF (congestive heart failure) Code(s): I50.811 - ACUTE RIGHT HEART FAILURE Status: Acute - Plan Continue Rocephin IVPB for another cpl of days -: HA is improving, other labs stable -: VQ scan- low/intermed risk for PE, keep on Lovenox -: HAMILTON, worse today, will convert to INP, consult Pulm -: Pt/family requesting INP rehab screening * .
[2018-09-27] MEDS ORDERED: hydrALAZINE 25 MG TAB PO SCH (16:45)
--- NOTE | 2018-09-27 20:40 | CON ---
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 She has seen Dr. Corrigan numerous times. X-ray was taken, which shows a right pleural effusion which has been chronic. She had a ventilation-perfusion lung scan done, which shows no evidence of pulmonary emboli. This morning, she has a cough, difficulty breathing, but no chest pain, no chills or sweats. She looks extremely frail. She has limitation to activity. PAST MEDICAL HISTORY: Supraventricular arrhythmias, myocardial infarction, chronic right pleural effusion, diabetes, hyperlipidemia, hypertension, CVA, and deaf. PAST SURGICAL HISTORY: Surgery on the right ear, ectopic , and leg surgery. SOCIAL HISTORY: Alcohol, 5 drinks a day. Tobacco, none. HOME MEDICATIONS: 1. Metformin 500 twice a day. 2. Valsartan 160 once a day. 3. Pravastatin 40. 4. Vitamin. 5. Lopressor 50. 6. Synthroid 88. 7. She has now started on antibiotics. 8. Lovenox. ALLERGIES: NONE. REVIEW OF SYSTEMS: Otherwise, 10-point negative. PHYSICAL EXAMINATION: VITAL SIGNS: O2 saturation is 99 on 2 L, , temperature 97, and blood pressure 150/93. CHEST: Bilateral crackles. No wheezing. CARDIAC: Normal S1 and S2. No gallop. ABDOMEN: No masses. LABORATORY DATA: Creatinine is 1.2. White count 7,000, hemoglobin 10, and hematocrit 34, and platelet counts are normal. IMPRESSION: 1. Dyspnea, cough, secondary to congestive heart failure. 2. Atrial fibrillation. 3. Chronic right pleural effusion. Nonsmoker. PLAN: Pulmonary gomes, continue present empiric antibiotics. I do not think she has infection. I may try some neb treatments. We will follow while in the hospital. We will notify Dr. Corrigan. Consultation note, 70 minutes, 50% in direct patient care. Job ID: [id number]
[2018-09-27] MEDS: hydrALAZINE 25 MG TAB PO SCH (21:41)
[2018-09-27] MEDS: Pravastatin Sodium 40 MG TAB PO SCH (21:41)
[2018-09-28] MEDS: Levothyroxine Sodium 88 MCG TAB PO SCH (05:37)
[2018-09-28] MEDS: hydrALAZINE 20 MG/ML VIAL SLOW IVP PRN (06:02)
[2018-09-28] MEDS: cefTRIAXone\\ROCEPHIN 1 GM in Sodium Chloride 0.9% 100 ML IVPB SCH (08:18)
[2018-09-28] MEDS: Enoxaparin Sodium 60 MG/0.6 ML SYRINGE SC SCH (08:18)
[2018-09-28] MEDS: hydrALAZINE 25 MG TAB PO SCH ×2 (08:19→20:44)
[2018-09-28] MEDS: Metoprolol Tartrate 50 MG TAB PO SCH ×2 (08:19→20:45)
[2018-09-28] MEDS: Multivitamin W/ Minerals 1 TAB PO SCH (08:19)
[2018-09-28] MEDS: Famotidine 20 MG TAB PO SCH ×2 (08:20→20:44)
[2018-09-28] MEDS ORDERED: Furosemide 40 MG/4 ML VIAL SLOW IVP SCH ×3 (09:00→17:30)
--- NOTE | 2018-09-28 12:19 | PRG ---
DATE OF SERVICE: 09/28/2018 SUBJECTIVE: This morning, she says she is better. Less cough, less shortness of breath. OBJECTIVE: VITAL SIGNS: Blood pressure is still elevated 183/97, pulse 81, temperature 97, and sats94% on room air. CHEST: Bilateral crackles. CARDIAC: Normal S1 and S2. No gallops. ABDOMEN: No masses IMPRESSION: 1. Respiratory failure, most of it appears to be cardiac in origin, congestive heart failure. 2. Chronic obstructive pulmonary disease. PLAN: Continue present cardiac care, neb treatments, and supportive care. Cultures all negative, switch her to oral medication_ Job ID: [id number] [id number]
--- NOTE | 2018-09-28 13:15 | PDOC.PN ---
- Subjective Encounter Start Date: 09/28/18 Encounter Start Time: 13:13 Subjective: not feeling good, SOB - Objective Resuscitation Status - Order Detail: 09/27/18 11:49 Resuscitation Status Routine Co-Sign Provider: Resuscitation Status: FULL: Full Resuscitation Discussed with: Patient and daughter Additional comments: Daughter Le is her surrogate decision maker MAR Reviewed: Yes Vital Signs & Weight: Vital Signs (12 hours) Temp Pulse Resp BP BP BP Pulse Ox 09/28/18 12:00 96.2 F L 66 18 159/77 H 99 09/28/18 08:19 81 183/97 H 09/28/18 08:15 96.9 F L 81 18 183/97 H 98 09/28/18 08:00 98 09/28/18 07:57 64 20 96 09/28/18 06:10 97.6 F 82 22 H 165/102 H 96 09/28/18 06:02 82 186/110 H 09/28/18 02:00 71 18 Weight Weight 108 lb 6.4 oz I&O: 09/27/18 09/28/18 09/29/18 06:59 06:59 06:59 Intake Total 0 2010 180 Output Total 200 Balance 2210 1811 180 Result Diagrams: 09/27/18 05:08 09/27/18 05:08 Additional Labs: Accuchecks 09/28/18 09/28/18 09/27/18 10:38 05:51 16:43 POC Glucose 166 H 175 H 155 H Phys Exam - Physical Examination HEENT: PERRLA, moist MMs, sclera anicteric, TM's clear, oral pharynx no lesions , 2+ tonsils Neck: no nodes, no JVD, supple, full ROM Respiratory: no wheezing, no rales Cardiovascular: RRR, no significant murmur Gastrointestinal: soft, non-tender, no distention, positive bowel sounds Musculoskeletal: edema present Neurological: non-focal, normal sensation Psychiatric: normal affect, A&O x 3 Skin: no rash, normal turgor, cap refill <2 seconds Dx/Plan (1) Acute right-sided CHF (congestive heart failure) Code(s): I50.811 - ACUTE RIGHT HEART FAILURE Status: Acute Comment: Diastolic heart failure, preserved EF with severe pulm HTN. BNP 1900. Will try a dose of IV lasix and trend creatinine. Patient might need some diuresis for now. (2) HAMILTON (dyspnea on exertion) Code(s): R06.09 - OTHER FORMS OF DYSPNEA Status: Acute Comment: CHF, Pulm HTN, nc OXYGEN AND GENTLE DIURESIS (3) Edema, peripheral Code(s): R60.9 - EDEMA, UNSPECIFIED Status: Acute Comment: LOW DOSE LASIX (4) Diabetes Code(s): E11.9 - TYPE 2 DIABETES MELLITUS WITHOUT COMPLICATIONS Status: Acute Comment: Continue Insulin sliding scale - Plan cont current plan of care, PT/OT, respiratory therapy, DVT proph w/lovenox, DVT proph w/SCDs * .
[2018-09-28] MEDS: Cefdinir 300 MG CAP PO SCH (20:44)
[2018-09-28] MEDS: Pravastatin Sodium 40 MG TAB PO SCH (20:44)
[2018-09-29] MEDS: hydrALAZINE 20 MG/ML VIAL SLOW IVP PRN (04:13)
[2018-09-29] MEDS: Levothyroxine Sodium 88 MCG TAB PO SCH (05:31)
[2018-09-29 05:47] LABS: Anion Gap 16 mmol/L (10-20); BUN (Urea Nitrogen) 25 mg/dL (9.8-20.1); Calc. Creatinine Clearance 21 mL/min (70-130); Calcium 9.2 mg/dL (7.8-10.44); Carbon Dioxide 22 mmol/L (23-31); Chloride 105 mmol/L (98-107); Estimated GFR-MDRD 35; Glucose 137 mg/dL (83-110); Sodium 140 mmol/L (136-145)
[2018-09-29 05:55] LABS: Potassium 2.9 mmol/L (3.5-5.1)
[2018-09-29] MEDS ORDERED: Potassium Chloride 20 MEQ TAB PO SCH (06:30)
[2018-09-29] MEDS: Potassium Chloride 10 MEQ in Premix Bag 1 BAG IVPB SCH ×2 (06:40→08:54)
[2018-09-29 08:54] VITALS: TEMP 99.2
[2018-09-29] MEDS: Enoxaparin Sodium 60 MG/0.6 ML SYRINGE SC SCH (08:55)
[2018-09-29] MEDS: Multivitamin W/ Minerals 1 TAB PO SCH (08:58)
[2018-09-29] MEDS: Metoprolol Tartrate 50 MG TAB PO SCH (08:58)
[2018-09-29] MEDS: hydrALAZINE 25 MG TAB PO SCH (08:58)
[2018-09-29] MEDS: Cefdinir 300 MG CAP PO SCH (08:58)
[2018-09-29] MEDS: Famotidine 20 MG TAB PO SCH (08:58)
[2018-09-29 13:30] VITALS: BP 162/80
--- NOTE | 2018-09-30 12:03 | EKG ---
Test Reason : SOB Blood Pressure : / mmHG Vent. Rate : 078 BPM Atrial Rate : 078 BPM P-R Int : 152 ms QRS Dur : 082 ms QT Int : 404 ms P-R-T Axes : 063 038 005 degrees QTc Int : 460 ms Normal sinus rhythm Possible Anterior infarct , age undetermined No STEMI Abnormal ECG Confirmed by CHAPIS HARTMANN D.O. ([id number]), city editor URIEL FLOYD ([id number] on 09/30/2018 12:03:29 PM Referred By: Confirmed By:CHAPIS HARTMANN D.O.
--- NOTE | 2018-09-30 22:17 | DIS ---
DATE OF ADMISSION: 09/27/2018 DATE OF DISCHARGE: 09/29/2018 ADMISSION DIAGNOSES: 1. Chest pain. 2. Hypertension. 3. Hyperlipidemia. 4. Diabetes. 5. Shortness of breath with weakness. DISCHARGE DIAGNOSES: 1. Chest pain, resolved. 2. Shortness of breath, resolved. 3. Hypertension. 4. Hyperlipidemia. 5. Diabetes. HISTORY OF PRESENTING ILLNESS: This is an 88-year-old female, who presented to the ER with a complaint of chest discomfort, weakness, and shortness of breath. The patient was admitted and treated with IV antibiotics, nasal cannula oxygen. The patient's echo here showed preserved ejection fraction at 55% to 60% with mild LVH and severely elevated pulmonary artery pressure. CT of the chest did not show any pulmonary embolism. BNP on admission was 1363. The patient was subsequently given one dose of IV Lasix with significant diuresis that improved her breathing significantly. The patient was then discharged after increasing her home metoprolol from 50 to 100 mg p.o. b.i.d. and the Valsartan was stopped and Lasix was added for diuresis in the light of mildly increasing creatinine with HA over CKD. Once the patient's breathing improved, she started feeling much stronger and was discharged for outpatient followup with a phosphatic fertilizer supervisor and primary care physicians. DISCHARGE MEDICATIONS: 1. Metoprolol 100 mg p.o. b.i.d. 2. Furosemide 20 mg p.o. daily. 3. Levothyroxine 88 mcg p.o. daily. 4. Metformin 400 mg p.o. b.i.d. DISCHARGE INSTRUCTIONS: 1. The patient was instructed to follow up with the phosphatic fertilizer supervisor and primary care physician. 2. Take the medications as prescribed. 3. Activity as tolerated. 4. Heart-healthy diet with low salt. Job ID: [id number] MTDD
--- NOTE | 2018-10-04 14:58 | STRESS ---
Acquisition Time: 2018-09-25 10:23:31 Total Exercise Time: 00:04:00 Test Indications: CHEST PAIN Medications: Protocol: ADENOSINE Max HR: 075 BPM 56% of Pred: 132 BPM Max BP: 170/090 mmHG Max Work Load: 1.0 METS RESTING ECG: NORMAL SINUS RHYTHM AT 71 BPM WITH INTRAVENTRICULAR CONDUCTION DELAY SYMPTOMS: NONE NORMAL BP RESPONSE ECTOPY: RARE PAC'S ECG STRESS: NO SIGNIFICANT CHANGES INTERPRETATION: NEGATIVE ECG/AWAIT NUCLEAR IMAGES FOR DEFINITIVE DIAGNOSIS Confirmed by GERMAINE JORDAN ELLEN ([id number]) on 10/04/2018 2:58:15 PM Referred By: ALYSA AYALA Confirmed By:ADITYA JORDAN PA-C
== END 2018-09-29 13:26 | disposition home or self-care (01) | DRG 291 ==
LOC: ERS 08:12 → ERHOLD 11:16 → 2SW 15:27 → OBSVTOIN 09-27 11:32 → 2NO 09-27 14:47
PROVIDERS: ADMIT Family Medicine; ATTEND Family Medicine
DX: I13.0 Hypertensive heart and chronic kidney disease with heart failure and stage 1 through stage 4 chronic kidney disease, or unspecified chronic kidney disease (principal); I50.31 Acute diastolic (congestive) heart failure; N17.9 Acute kidney failure, unspecified; I48.91 Unspecified atrial fibrillation; E78.5 Hyperlipidemia, unspecified; J44.9 Chronic obstructive pulmonary disease, unspecified; I27.20 Pulmonary hypertension, unspecified; N18.9 Chronic kidney disease, unspecified; E11.22 Type 2 diabetes mellitus with diabetic chronic kidney disease; H91.90 Unspecified hearing loss, unspecified ear; I25.2 Old myocardial infarction; Z86.73 Personal history of transient ischemic attack (TIA), and cerebral infarction without residual deficits; Z98.890 Other specified postprocedural states; Z79.84 Long term (current) use of oral hypoglycemic drugs; Z79.899 Other long term (current) drug therapy
CPT/HCPCS: 36415; 36416; 70450; 71045; 71046; 78452; 78582; 80048; 80053; 80061; 81003; 81015; 82550; 82553; 83880; 84443; 84484; 85025; 93005; 93017; 93306; 93880; 93970; 94640; 96365; A9500; A9540; A9558; G8978-GP-CJ; G8979-GP-CI; G8987-GO-CI; G8988-GO-CI; G8989-GO-CI; J0153; J0360; J0696; J1650; J1940; J3480; J7050; J7620

== ENCOUNTER 2018-11-19 08:45 | Outpatient (CLI) | payer MEDICARE, OTHER ==
--- NOTE | 2018-11-19 09:03 | RAD ---
TWO VIEWS CHEST: Date: 11-19-18 Provided Clinical History: Dyspnea. FINDINGS: Comparison is made with the study dated 09-28-18. The cardiac silhouette remains enlarged. Vascular calcification is noted involving the aortic arch. R ight basilar pleural and/or parenchymal opacity appears similar to the prior examination. Left lung r emains grossly clear. No evidence for pneumothorax. IMPRESSION: Stable radiographic appearance of the chest. POS: TPC
== END 2018-11-19 08:46 | disposition home or self-care (01) ==
LOC: RAD 08:45
PROVIDERS: ATTEND Internal Medicine Critical Care Medicine
DX: R06.00 Dyspnea, unspecified (principal)
CPT/HCPCS: 71046

== ENCOUNTER 2019-03-10 09:18 | Outpatient (CLI) | payer MEDICARE, OTHER ==
--- NOTE | 2019-03-10 11:18 | RAD ---
FRONTAL AND LATERAL IMAGING CHEST: Date: 03-10-19 Comparison: 11-19-18 History: Shortness of breath. FINDINGS: Stable prominence of the cardiac silhouette. Stable atherosclerotic calcification of the aortic arch. No pneumothorax is seen. There is blunting of the costophrenic angles bilaterally, right greater ebony n left, suggesting stable moderate right pleural effusion and small left pleural effusion. Right midd le and right lower lobes are completely obscured and not well evaluated on this exam. An underlying m ass lesion or focal consolidation of right middle or right lower lobe cannot be excluded. IMPRESSION: Stable increased density in both lung bases, right greater than left. Findings suggest significant bi lateral stable pleural effusions. POS: H
== END 2019-03-10 09:19 | disposition home or self-care (01) ==
LOC: RAD 09:18
PROVIDERS: ATTEND Internal Medicine Critical Care Medicine
DX: R06.00 Dyspnea, unspecified (principal); J98.4 Other disorders of lung
CPT/HCPCS: 71046